=== PATIENT | female | born 1960 | race Two or more races ===

== ENCOUNTER 2024-06-15 09:53 | Outpatient (RCR) | payer OTHER, MEDICAID, SELFPAY ==
[2024-06-06 16:35] LABS: Basophils % (Auto) 0 % (0-2.5); Eosinophils # (Auto) 0.2 Thou/mm3 (0.0-0.5); Eosinophils % (Auto) 3 % (0-10); Hemoglobin 10.6 g/dL (12.0-16.0); Immature Granulocytes % (Auto) 0 % (0-0); Immature Granulocytes Auto 0.02 Thou/mm3 (0.00-0.00); Lymphocytes # (Auto) 1.8 Thou/mm3 (1.0-4.8); Lymphocytes % (Auto) 34 % (10-50); Mean Corpuscular HGB Conc 33.1 g/dl (31.0-37.0); Mean Corpuscular Hemoglobin 31.2 pg (25.0-35.0); Mean Corpuscular Volume 94 fL (80-100); Monocytes # (Auto) 0.5 Thou/mm3 (0.0-0.8); Monocytes % (Auto) 10 % (0-12); Neutrophils # (Auto) 2.8 Thou/mm3 (1.8-7.7); Neutrophils % (Auto) 52 % (37-80); Nucleated Red Blood Cell % 0 /100 WBC (0); Platelet Count 263 Thou/mm3 (140-440); RDW Standard Deviation 43.8 fL (36.4-46.3); White Blood Count 5.4 Thou/mm3 (3.6-11.0)
[2024-06-06 17:14] LABS: Alanine Aminotransferase 17 U/L (10-49); Albumin, Serum 4.4 gm/dL (3.4-4.8); Albumin/Globulin Ratio 1.7 (1.2-2.2); Alkaline Phosphatase 46 U/L (46-116); Anion Gap 6 (7-16); Aspartate Amino Transferase 22 U/L (0-34); BUN/Creatinine Ratio 20 Ratio (12-20); Bilirubin,Total 0.4 mg/dL (0.3-1.2); Blood Urea Nitrogen 16 mg/dL (9-23); Carbon Dioxide 25.1 mMol/L (20.0-31.0); Chloride 106 mMol/L (98-107); Creatinine (Component) 0.8 mg/dL (0.6-1.3); Globulin 2.6 gm/dL (2.3-3.5); Glucose 127 mg/dL (74-106); Osmolality,Calculated 277 (275-295); Potassium 3.9 mMol/L (3.4-5.1); Sodium 137 mMol/L (136-145); eGFR > 60 See Note
== END 2024-06-24 23:59 | disposition home or self-care (01) ==
LOC: SCTC 09:53
PROVIDERS: Internal Medicine Hematology & Oncology; PCP Nurse Practitioner Family; Referring Provider Nurse Practitioner Family; Visit Provider Radiology Therapeutic Radiology
DX: Z51.0 Encounter for antineoplastic radiation therapy (principal); Z51.11 Encounter for antineoplastic chemotherapy; C50.812 Malignant neoplasm of overlapping sites of left female breast; Z17.421 Hormone receptor negative with human epidermal growth factor receptor 2 negative status; L59.9 Disorder of the skin and subcutaneous tissue related to radiation, unspecified; Y84.2 Radiological procedure and radiotherapy as the cause of abnormal reaction of the patient, or of later complication, without mention of misadventure at the time of the procedure
CPT/HCPCS: 36591; 77336; 77412; 80053; 85025; 96413; 99213; A4216; J1642; J7050; Q5117; G0463

== ENCOUNTER 2024-06-27 07:36 | Outpatient (CLI) | payer OTHER, MEDICAID, SELFPAY ==
[2024-06-20 14:54] VITALS: BMI 28.7
[2024-06-26 08:02] LABS: Basophils % (Auto) 0 % (0-2.5); Eosinophils # (Auto) 0.2 Thou/mm3 (0.0-0.5); Eosinophils % (Auto) 3 % (0-10); Hematocrit 37.3 % (36.0-46.0); Hemoglobin 12.5 g/dL (12.0-16.0); Immature Granulocytes % (Auto) 0 % (0-0); Immature Granulocytes Auto 0.01 Thou/mm3 (0.00-0.00); Lymphocytes # (Auto) 1.9 Thou/mm3 (1.0-4.8); Lymphocytes % (Auto) 35 % (10-50); Mean Corpuscular HGB Conc 33.5 g/dl (31.0-37.0); Mean Corpuscular Hemoglobin 31.4 pg (25.0-35.0); Mean Corpuscular Volume 94 fL (80-100); Monocytes # (Auto) 0.5 Thou/mm3 (0.0-0.8); Monocytes % (Auto) 9 % (0-12); Neutrophils # (Auto) 2.9 Thou/mm3 (1.8-7.7); Neutrophils % (Auto) 54 % (37-80); Nucleated Red Blood Cell % 0 /100 WBC (0); Platelet Count 257 Thou/mm3 (140-440); RDW Standard Deviation 41.6 fL (36.4-46.3); Red Blood Count 3.98 Miln/mm3 (4.00-5.20); White Blood Count 5.5 Thou/mm3 (3.6-11.0)
[2024-06-26 08:15] VITALS: BP 137/81; PULSE 75; RESP 16; TEMP 37.1; O2SAT 99
[2024-06-26 08:17] LABS: Blood Urea Nitrogen 20 mg/dL (9-23); Estimated Creatinine Clearance 51.8 mL/min (>60); eGFR > 60 See Note
[2024-06-26 08:42] LABS: Partial Thromboplastin Time 26.2 Seconds (22.0-36.0); Prothrombin Time 10.9 Seconds (9.0-12.2)
[2024-06-26 10:05] LABS: Flow Cytometry* See Sep Rpt
--- NOTE | 2024-06-26 10:28 | PC.NURSE ---
procedure was unable to be completed due to incorrect order and ran out of time. 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 there will not be enough time for the procedure. patient will be rescheduled for tomorrow 06/27/24 at 0730
[2024-06-27] VITALS (9 sets, daily range): BP systolic 115–161; BP diastolic 62–96; PULSE 63–82; RESP 12–19; TEMP 36.4–36.6; O2SAT 95–99
--- NOTE | 2024-06-27 08:30 | XR_ITS ---
Examination: CT-guided percutaneous bone marrow aspiration right posterior superior iliac crest CT-guided percutaneous bone density deep right posterior superior iliac crest CT pelvis without intravenous contrast Date and time of procedure: June 27, 2024 0935 hours INDICATIONS: Diagnosis malignant neoplasm breast, anemia Informed consent provided. A timeout was completed verifying correct patient, procedure, site and positioning. Technique: Axial 3 mm sections were obtained for localization of the right posterior superior iliac crest Appropriate area is marked. The patient's site was prepped and draped in sterile fashion Maximal sterile barrier technique utilized, including hand hygiene Local anesthesia was obtained with 1% lidocaine. Low dose protocols were performed. One or more of the following dose reduction techniques were used; automated exposure control, adjustment of the mA and/or KV according to patient size, use of iterative reconstruction technique. Utilizing CT fluoroscopic guidance 14-gauge bone biopsy needle placed in the right posterior superior iliac crest 5 cc marrow aspirate obtained deemed adequate by the technologist 4 cm bone core obtained Estimated blood loss 2 cc Complete pathology report to follow. Impression: Successful CT-guided percutaneous bone marrow aspiration right posterior superior iliac crest Successful CT-guided percutaneous bone biopsy deep right posterior superior iliac crest
[2024-06-27] MEDS: SODIUM CHLORIDE 0.9% 100 ML 20 ML IV (09:47)
[2024-06-27] MEDS: fentaNYL CIT INJ 50 mCg/ML AMP 2ML 75 MCG IVP (09:48)
--- NOTE | 2024-06-27 14:17 | PC.NURSE ---
1015 patient is awake, alert, breathing unlabored, s/p bone marrow biopsy and aspiration, dressing dry with no bleeding, report received from Chuck DALY, patient to recovery for 1hr. 1135 patient is awake, alert, breathing unlabored, dressing dry with no active bleeding, discharge instructions given to patient and family member Kennedy, patient discharged home in wheelchair with all belongings.
== END 2024-06-27 11:35 | disposition home or self-care (01) ==
PROVIDERS: Radiology Diagnostic Radiology; PCP Internal Medicine Hematology & Oncology; Referring Provider Internal Medicine Hematology & Oncology; Visit Provider Internal Medicine Hematology & Oncology
DX: C50.912 Malignant neoplasm of unspecified site of left female breast (principal); C50.112 Malignant neoplasm of central portion of left female breast; Z01.812 Encounter for preprocedural laboratory examination
CPT/HCPCS: 38221; 36415; 77012; 80053; 82565; 84520; 85025; 85610; 85730; J3010; J7050

== ENCOUNTER → 2024-07-04 | Outpatient (CLI) | payer OTHER, MEDICAID, SELFPAY ==
--- NOTE | 2024-07-04 14:30 | ECHO_ITS ---
Transthoracic Echo Report Ht (in): 62 Wt (lb): 160 Exam Location: Echo Lab Status: Preadmit Heel Room Supervisor: Nery Bender Indications: Procedure Performed: BP: / HR: Rhythm: Sinus Technical Quality: Fair MEASUREMENTS (Male / Female) Normal Values 2D ECHO LV Diastolic Diameter PLAX 4.0 cm 4.2 - 5.9 / 3.9 - 5.3 cm LV Systolic Diameter PLAX 2.6 cm IVS Diastolic Thickness 1.0 cm 0.6 - 1.0 / 0.6 - 0.9 cm LVPW Diastolic Thickness 0.9 cm 0.6 - 1.0 / 0.6 - 0.9 cm LV Relative Wall Thickness 0.5 LVOT Diameter 1.9 cm LA Volume Index 19.3 cm?/m? 16 - 28 cm?/m? Ascending Aorta Diameter 3.3 cm M-MODE Aortic Root Diameter MM 2.9 cm LA Systolic Diameter MM 3.6 cm LA Ao Ratio MM 1.2 AV Cusp Separation MM 1.7 cm DOPPLER AV Peak Velocity 166.0 cm/s AV Peak Gradient 11.0 mmHg AV Mean Gradient 6.0 mmHg AV Velocity Time Integral 34.9 cm AI Peak Velocity 422.5 cm/s AI Peak Gradient 71.4 mmHg AI Pressure Half Time 377.0 ms LVOT Peak Velocity 91.6 cm/s LVOT Peak Gradient 3.4 mmHg LVOT Velocity Time Integral 16.5 cm AV Area Cont Eq vti 1.3 cm? AV Area Cont Eq pk 1.6 cm? MV Peak Velocity 88.9 cm/s MV Peak Gradient 3.2 mmHg MV Mean Velocity 51.0 cm/s MV Mean Gradient 1.0 mmHg MV Area PHT 4.7 cm? Mitral E Point Velocity 62.1 cm/s Mitral A Point Velocity 82.0 cm/s Mitral E to A Ratio 0.8 LV E' Lateral Velocity 6.9 cm/s Mitral E to LV E' Lateral Ratio 9.1 LV E' Septal Velocity 5.7 cm/s Mitral E to LV E' Septal Ratio 11.0 FINDINGS Left Ventricle Normal left ventricular size, wall thickness, systolic function with no obvious regional wall motion abnormalities. The ejection fraction is visually estimated at 60-65 %. Right Ventricle The right ventricle is normal in size and systolic function. Left Atrium The left atrium is normal by two-dimensional, color flow and Doppler imaging with no structural abnormalities, no thrombus formation present. Right Atrium The right atrium is normal by two-dimensional imaging, color flow and Doppler imaging with no struct ural abnormalities, no thrombus formation present. Atrial Septum The interatrial septum appears normal with no evidence of a shunt. Aorta The aorta is normal by two-dimensional, color flow and Doppler interrogation. Mitral Valve The mitral valve is normal by two-dimensional, color flow and Doppler interrogation. There is no sig nificant mitral valve regurgitation. Aortic Valve The aortic valve is trileaflet. Mild sclerosis without stenosis. There is mild aortic valve regurgi tation. Tricuspid Valve The tricuspid valve is normal by two-dimensional, color flow and Doppler interrogation. There is tra ce tricuspid valve regurgitation. Pulmonic Valve There is trace pulmonic valve regurgitation. Vessels The pulmonary artery appears normal. The inferior vena cava pulmonary and hepatic veins appear wai l. Pericardium The pericardium is normal by two-dimensional imaging. There is no significant pericardial effusion. CONCLUSIONS Indication: Malignant neoplasm of left female breast Normal LV size and function. Stage I diastolic dysfunction. Estimated EF 60-65% Normal RV size and function. Moderate AV sclerosis without stenosis. Trace TR, PI. Mild AI. Lavell Thompson (Electronically Signed) Final Date: 04 July 2024 18:11
== END | disposition home or self-care (01) ==
PROVIDERS: PCP Nurse Practitioner Family; Referring Provider Internal Medicine Hematology & Oncology; Visit Provider Internal Medicine Hematology & Oncology
DX: I08.2 Rheumatic disorders of both aortic and tricuspid valves (principal); C50.112 Malignant neoplasm of central portion of left female breast
CPT/HCPCS: 93306

== ENCOUNTER 2024-07-20 09:26 | Outpatient (RCR) | payer OTHER, MEDICAID, SELFPAY ==
[2024-06-27 15:42] LABS: Basophils % (Auto) 1 % (0-2.5); Eosinophils # (Auto) 0.1 Thou/mm3 (0.0-0.5); Eosinophils % (Auto) 2 % (0-10); Hemoglobin 11.2 g/dL (12.0-16.0); Immature Granulocytes % (Auto) 0 % (0-0); Immature Granulocytes Auto 0.01 Thou/mm3 (0.00-0.00); Lymphocytes # (Auto) 1.7 Thou/mm3 (1.0-4.8); Lymphocytes % (Auto) 38 % (10-50); Mean Corpuscular HGB Conc 32.9 g/dl (31.0-37.0); Mean Corpuscular Hemoglobin 31.2 pg (25.0-35.0); Mean Corpuscular Volume 95 fL (80-100); Monocytes # (Auto) 0.3 Thou/mm3 (0.0-0.8); Monocytes % (Auto) 8 % (0-12); Neutrophils # (Auto) 2.2 Thou/mm3 (1.8-7.7); Neutrophils % (Auto) 51 % (37-80); Nucleated Red Blood Cell % 0 /100 WBC (0); Platelet Count 267 Thou/mm3 (140-440); RDW Standard Deviation 41.5 fL (36.4-46.3); Red Blood Count 3.59 Miln/mm3 (4.00-5.20); White Blood Count 4.4 Thou/mm3 (3.6-11.0)
[2024-06-27 16:01] LABS: Alanine Aminotransferase 18 U/L (10-49); Albumin, Serum 4.6 gm/dL (3.4-4.8); Albumin/Globulin Ratio 1.8 (1.2-2.2); Alkaline Phosphatase 48 U/L (46-116); Anion Gap 9 (7-16); Aspartate Amino Transferase 12 U/L (0-34); BUN/Creatinine Ratio 21 Ratio (12-20); Bilirubin,Total 0.6 mg/dL (0.3-1.2); Blood Urea Nitrogen 19 mg/dL (9-23); Calcium 9.5 mg/dL (8.3-10.6); Calcium (Corrected) 9.5 mg/dL (8.5-10.1); Chloride 104 mMol/L (98-107); Creatinine (Component) 0.9 mg/dL (0.6-1.3); Globulin 2.6 gm/dL (2.3-3.5); Glucose 237 mg/dL (74-106); Osmolality,Calculated 285 (275-295); Potassium 3.9 mMol/L (3.4-5.1); Sodium 138 mMol/L (136-145); Total Protein 7.2 gm/dL (5.7-8.2); eGFR > 60 See Note
[2024-07-18 09:22] LABS: Basophils % (Auto) 0 % (0-2.5); Eosinophils # (Auto) 0.2 Thou/mm3 (0.0-0.5); Eosinophils % (Auto) 3 % (0-10); Hematocrit 33.7 % (36.0-46.0); Hemoglobin 11.3 g/dL (12.0-16.0); Immature Granulocytes % (Auto) 0 % (0-0); Immature Granulocytes Auto 0.01 Thou/mm3 (0.00-0.00); Lymphocytes # (Auto) 1.8 Thou/mm3 (1.0-4.8); Lymphocytes % (Auto) 36 % (10-50); Mean Corpuscular HGB Conc 33.5 g/dl (31.0-37.0); Mean Corpuscular Hemoglobin 30.9 pg (25.0-35.0); Mean Corpuscular Volume 92 fL (80-100); Monocytes # (Auto) 0.5 Thou/mm3 (0.0-0.8); Monocytes % (Auto) 10 % (0-12); Neutrophils # (Auto) 2.5 Thou/mm3 (1.8-7.7); Neutrophils % (Auto) 50 % (37-80); Nucleated Red Blood Cell % 0 /100 WBC (0); Platelet Count 256 Thou/mm3 (140-440); RDW Standard Deviation 39.9 fL (36.4-46.3); Red Blood Count 3.66 Miln/mm3 (4.00-5.20); White Blood Count 4.9 Thou/mm3 (3.6-11.0)
[2024-07-18 09:36] LABS: Alanine Aminotransferase 17 U/L (10-49); Albumin, Serum 4.7 gm/dL (3.4-4.8); Albumin/Globulin Ratio 1.9 (1.2-2.2); Alkaline Phosphatase 48 U/L (46-116); Anion Gap 9 (7-16); Aspartate Amino Transferase 15 U/L (0-34); BUN/Creatinine Ratio 30 Ratio (12-20); Bilirubin,Total 0.5 mg/dL (0.3-1.2); Blood Urea Nitrogen 24 mg/dL (9-23); Calcium 9.8 mg/dL (8.3-10.6); Calcium (Corrected) 9.8 mg/dL (8.5-10.1); Chloride 105 mMol/L (98-107); Creatinine (Component) 0.8 mg/dL (0.6-1.3); Globulin 2.5 gm/dL (2.3-3.5); Glucose 138 mg/dL (74-106); Osmolality,Calculated 283 (275-295); Potassium 4.1 mMol/L (3.4-5.1); Sodium 139 mMol/L (136-145); Total Protein 7.2 gm/dL (5.7-8.2); eGFR > 60 See Note
--- NOTE | 2024-07-23 14:46 | CTCFLWUP_ITS ---
Patient: OUMOU SOLANO : 1960 Page 6 of 8 FOLLOW UP NOTE DATE OF SERVICE: 07/17/2024 NAME: OUMOU SOLANO ACCOUNT: [id number] : 1960 AGE: 63 INTERVAL HISTORY: ONCOLOGY HISTORY: DIAGNOSIS: Malignant neoplasm of central portion of left female breast [ICD10] C50.112 DATE OF DIAGNOSIS: 06/28/2023 STAGE/TNM: T2 N0 M0 HER2 positive ER/WI negative TREATMENT HISTORY: Care?Plan Start?Date Cycle Day Intent TCH?1 12/12/2023 1 21 Curative?(adjuvant) Zoledronic?Acid?4?mg?adjuvant 01/04/2024 1 180 Curative?(adjuvant) HISTORY OF PRESENT ILLNESS: Oumou Solano is a 63-year-old SPA speaking female with following oncology history. 05/30/2021: Ms. Solano had bilateral screening mammograms 01/18/2023: Ms. Solano started feeling a lump in the left breast. She had bilateral digital chadd mograms 01/25/2023: Left breast ultrasound 06/28/2023: Ultrasound-guided left breast biopsy? 08/05/2023: Echocardiogram showed an ejection fraction of 55-60%. 08/12/2023: PET/CT scan 08/18/2023: MRI of the both breast with and without contrast 09/02/2023: CT scan of the abdomen and pelvis with IV contrast was done to evaluate the cause for abdom inal pain 09/16/2023: Left breast lumpectomy with sentinel lymph node biopsy? 10/29/2023: Endometrial biopsy negative for malignancy. 11/03/2023: Echo cardiogram showed an ejection fraction of 60-65%. 12/21/2023: Patient received first cycle of TCH chemotherapy in the adjuvant setting. OTHER MEDICAL HISTORY/CONDITIONS: DIABETES HYPERTENSION LEFT BREAST CANCER CHOLELITHIASIS CHEMO PORT PLACED AUGUST 2023 DR GRANT TUBAL LIGATION LEFT KNEE REPLACEMENT BLADDER SLING PROLAPSE 2ND SURGERY FAMILY HISTORY: Father:?DENIES Mother:?DENIES Sibling:?DENIES Children:?DENIES Cancer?History:?DENIES Patient?denies?family?cancer?history. 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 Aspirin Child - 81 mg Daily 2. atorvastatin - 10 mg Daily 3. Basaglar KwikPen - Twice a Day 4. famotidine - 20 mg Daily 5. gabapentin - 100 mg 1 Capsule Twice a Day 6. lisinopril - 40 mg Daily 7. metFORMIN - 500 mg 1 tab Twice a Day Medications Last Reconciled by Jana Whitaker MA on 07/17/2024 ALLERGIES: No Known Drug Allergies REVIEW OF SYSTEMS: A complete 14-point review of systems was performed and is negative except as noted in interval histo ry. PHYSICAL EXAMINATION: VITAL SIGNS: Temperature?99.5, B/P?147/94, Oxygen?Saturation?98% PAIN: 0 - No pain ECOG Performance Status: 0 - Asymptomatic and fully active GENERAL APPEARANCE: Appears well, in no apparent distress, appropriately interactive. HEENT: Normocephalic, no temporal wasting, normal conjunctiva, no scleral icterus, normal hearing, li ps without lesions, neck normal range of motion. CARDIOVASCULAR: Not assessed. PULMONARY: Normal respiratory effort, no respiratory distress or use of accessory muscles, speaking i n full sentences, no tachypnea. EXTREMITIES: No pedal edema or cyanosis. SKIN: Normal skin appearance. NEUROLOGIC: Alert and oriented x4. PSHYCHIATRIC: Appropriate affect, mood normal, behavior normal, intact thought and speech. LABORATORY DATA: I have personally reviewed and interpreted each of the patient?s relevant lab tests, abnormal finding s are below: Date 07/18/24 ??GLUCOSE,RANDOM?(mg/dL) 138?H ??BLOOD?UREA?NITROGEN?(mg/dL) 24?H ??CREATININE?(mg/dL) 0.80 ??SODIUM?(mmol/L) 139 ??POTASSIUM?(mmol/L) 4.1 ??CHLORIDE?(mmol/L) 105 ??CrCl?(CandG)?(ml/min) 65.39 ??AST/SGOT?(Unit/L) 15 ??ALT/SGPT?(Unit/L) 17 ??ALKALINE?PHOSPHATASE?(Unit/L) 48 ??BILIRUBIN,?TOTAL?(mg/dL) 0.5 ??PROTEIN?TOTAL?(gm/dl) 7.2 ??ALBUMIN,?SERUM?(gm/dl) 4.7 ??GLOBULIN?(gm/dl) 2.5 ??ALBUMIN/GLOBULIN?RATIO 1.9 ??CALCIUM,?SERUM?(mg/dL) 9.8 ??CALCIUM?SERUM?(CORRECTED)?(mg/dL) 9.8 ASSESSMENT/PLAN: #1 stage IIa (pT2, snN0, cM0) ER negative, WI negative, 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 S/p left breast lum pectomy and sentinel lymph node biopsy on 09/16/2023. S/p ultrasound-guided biopsy of the left breast mass (06/28/2023) S/p TCH chemotherapy in the adjuvant setting.. Follow-up with radiation oncology Continue Herceptin for 1 year #2 type 2 diabetes currently on insulin. #3 history of hypertension follow with the PCP Echo every 3 months CBC CMP echo RETURN TO CLINIC: 4 weeks BILLING AND COMPLIANCE: I reviewed external records from providers outside my specialty as summarized above. I spent a total of 50 minutes on this patient?s care on the day of their visit excluding time spent related to any bi lled procedures. This time includes time spent with the patient as well as time spent documenting in the medical record, reviewing patients records and tests, obtaining history, placing orders, communi cating with other healthcare professionals, counseling the patient, family or caregiver, and/or care coordination for the diagnoses above. Electronically Signed by: Sonido Young MD T: 2:43 PM CC: PCP: Heraclio Emmanuel Referring: Heraclio Emmanuel This document was completed utilizing speech recognition software. Grammatical errors, random word in sertions, pronoun errors, and incomplete sentences are an occasional consequence of this system due t o software limitations, ambient noise, and hardware issues. Any formal questions or concerns about th e content, text or information contained within the body of this dictation should be directly address ed to the provider for clarification.
== END 2024-07-25 23:59 | disposition home or self-care (01) ==
LOC: SCTC 09:26
PROVIDERS: PCP Family Medicine; Referring Provider Family Medicine; Visit Provider Internal Medicine Hematology & Oncology
DX: Z51.11 Encounter for antineoplastic chemotherapy (principal); C50.812 Malignant neoplasm of overlapping sites of left female breast; Z17.1 Estrogen receptor negative status [ER-]; Z17.22 Progesterone receptor negative status; Z17.31 Human epidermal growth factor receptor 2 positive status; Z90.12 Acquired absence of left breast and nipple; I10 Essential (primary) hypertension; E11.9 Type 2 diabetes mellitus without complications; Z79.4 Long term (current) use of insulin
CPT/HCPCS: 36591; 80053; 85025; 96413; 99212; A4216; J1642; J7040; J7050; Q5117; G0463

== ENCOUNTER → 2024-08-04 | Outpatient (CLI) | payer OTHER, MEDICAID, SELFPAY ==
--- NOTE | 2024-08-04 15:07 | XR_ITS ---
Examination: Breast ultrasound, unilateral, left complete Date and time of exam: August 04, 2024 1515 hours INDICATIONS: Recurrent sharp left breast pain beginning 2 months ago, diagnosis intraductal breast cancer 3:00 position left breast June 2023 Technique: Real-time sow scale ultrasonographic imaging performed left breast including all 4 quadrants as well as nipple retroareolar and axillary region. Findings: Architectural distortion 3:00 position left breast 2.7 x 1.0 x 2.7 cm indistinct margins Retroareolar area of architectural distortion 4.5 x 1.3 x 4.5 cm, indistinct margins IMPRESSION: BI-RADS Category 0: Incomplete: Need additional imaging evaluation Recommend diagnostic mammography follow-up Recommend repeat left breast sonography with the radiologist in attendance
== END | disposition home or self-care (01) ==
PROVIDERS: PCP Nurse Practitioner Family; Referring Provider Nurse Practitioner Family; Visit Provider Nurse Practitioner Family
DX: R92.8 Other abnormal and inconclusive findings on diagnostic imaging of breast (principal)
CPT/HCPCS: 76641

== ENCOUNTER 2024-08-10 09:00 | Outpatient (RCR) | payer OTHER, MEDICAID, SELFPAY ==
[2024-08-09 16:18] LABS: Basophils % (Auto) 0 % (0-2.5); Eosinophils # (Auto) 0.3 Thou/mm3 (0.0-0.5); Eosinophils % (Auto) 4 % (0-10); Hematocrit 34.5 % (36.0-46.0); Hemoglobin 11.8 g/dL (12.0-16.0); Immature Granulocytes % (Auto) 0 % (0-0); Immature Granulocytes Auto 0.03 Thou/mm3 (0.00-0.00); Lymphocytes % (Auto) 29 % (10-50); Mean Corpuscular HGB Conc 34.2 g/dl (31.0-37.0); Mean Corpuscular Hemoglobin 31.1 pg (25.0-35.0); Mean Corpuscular Volume 91 fL (80-100); Monocytes # (Auto) 0.5 Thou/mm3 (0.0-0.8); Monocytes % (Auto) 8 % (0-12); Neutrophils % (Auto) 59 % (37-80); Nucleated Red Blood Cell % 0 /100 WBC (0); Platelet Count 295 Thou/mm3 (140-440); RDW Standard Deviation 40.1 fL (36.4-46.3); Red Blood Count 3.79 Miln/mm3 (4.00-5.20); White Blood Count 6.8 Thou/mm3 (3.6-11.0)
[2024-08-09 16:43] LABS: Alanine Aminotransferase 16 U/L (10-49); Albumin, Serum 4.8 gm/dL (3.4-4.8); Albumin/Globulin Ratio 1.8 (1.2-2.2); Alkaline Phosphatase 53 U/L (46-116); Anion Gap 12 (7-16); Aspartate Amino Transferase 17 U/L (0-34); BUN/Creatinine Ratio 21 Ratio (12-20); Bilirubin,Total 0.4 mg/dL (0.3-1.2); Blood Urea Nitrogen 23 mg/dL (9-23); Calcium 10.1 mg/dL (8.3-10.6); Calcium (Corrected) 10.1 mg/dL (8.5-10.1); Carbon Dioxide 26.3 mMol/L (20.0-31.0); Chloride 102 mMol/L (98-107); Creatinine (Component) 1.1 mg/dL (0.6-1.3); Globulin 2.6 gm/dL (2.3-3.5); Glucose 129 mg/dL (74-106); Osmolality,Calculated 285 (275-295); Potassium 3.9 mMol/L (3.4-5.1); Sodium 140 mMol/L (136-145); Total Protein 7.4 gm/dL (5.7-8.2); eGFR 56 See Note
== END 2024-08-25 23:59 | disposition home or self-care (01) ==
LOC: SCTC 09:00
PROVIDERS: PCP Nurse Practitioner Family; Referring Provider Nurse Practitioner Family; Visit Provider Internal Medicine Hematology & Oncology
DX: Z51.11 Encounter for antineoplastic chemotherapy (principal); C50.812 Malignant neoplasm of overlapping sites of left female breast; Z17.1 Estrogen receptor negative status [ER-]; Z17.22 Progesterone receptor negative status; Z17.32 Human epidermal growth factor receptor 2 negative status; Z90.12 Acquired absence of left breast and nipple; E11.9 Type 2 diabetes mellitus without complications; I10 Essential (primary) hypertension; Z79.4 Long term (current) use of insulin
CPT/HCPCS: 36591; 80053; 85025; 96413; A4216; J1642; J7040; J7050; Q5117

== ENCOUNTER → 2024-08-23 | Outpatient (CLI) | payer OTHER, MEDICAID, SELFPAY ==
--- NOTE | 2024-08-23 12:50 | XR_ITS ---
Examination: Diagnostic digital mammography, unilateral, left Computer aided detection 3-D breast Tomosynthesis, unilateral Date and time of exam: August 23, 2024 1319 hours Compared to mammograms dating to February 18, 2018 INDICATIONS: Patient states left breast pain post surgery 11 months ago Technique: Nonmagnified MLO, CC views of the left breast have been obtained, reconstructed from 3-D Tomosynthesis images. R2 computer aided detection program utilized for evaluation of suspicious masses and/or abnormal calcifications. 3-D Tomosynthesis images obtained. Findings: Scattered areas of fibroid rather density Extensive architectural distortion central and outer left breast with skin thickening consistent with treated left breast cancer Benign calcifications Impression: BI-RADS category 0: Incomplete: Need additional imaging evaluation Given the 3:00 and retroareolar findings of architectural distortion on the left breast sonogram August 04, 2024, recommend follow-up spot tomographic views central and upper outer quadrant left breast Awaiting the patient's left breast sonography examination scheduled today
--- NOTE | 2024-08-23 14:13 | XR_ITS ---
Examination: Breast ultrasound, unilateral, left complete Date and time of exam: August 23, 2024 1419 hours INDICATIONS: History left breast carcinoma post lumpectomy, retroareolar architectural distortion on breast sonogram August 04, 2024 Technique: Real-time sow scale ultrasonographic imaging performed left breast including all 4 quadrants as well as nipple retroareolar and axillary region. Findings: Retroareolar architectural distortion extending to the 3:00 position left breast, 7 cm This may be postsurgical scarring IMPRESSION: BI-RADS Category 3: Probably benign findings One additional 3 month follow-up left breast sonogram strongly recommended
== END | disposition home or self-care (01) ==
LOC: CDIM 12:33
PROVIDERS: PCP Nurse Practitioner Family; Referring Provider Nurse Practitioner Family; Visit Provider Nurse Practitioner Family
DX: R92.8 Other abnormal and inconclusive findings on diagnostic imaging of breast (principal)
CPT/HCPCS: 76641; 77061; 77065; G0279

== ENCOUNTER → 2024-08-30 | Outpatient (CLI) | payer OTHER, MEDICAID, SELFPAY ==
--- NOTE | 2024-08-30 09:15 | XR_ITS ---
Examination: Abdomen sonogram, complete Date and time of exam: August 30, 2024 0940 hours INDICATIONS: Abdominal pain beginning 6 months ago. Technique: Multiple real-time grayscale transabdominal sonographic images of the abdomen have been obtained. Findings: 13 mm gallstone in the gallbladder neck Gallbladder wall 0.3 cm Common bile duct 0.6 cm Pancreatic head 2.7 cm Aorta not enlarged Liver 15 cm right lobe 26 mm liver cyst fatty infiltration Normal hepatopedal portal venous oh Patent IVC Right kidney 9.0 x 4.9 x 6.7 cm cortex 1.9 cm Left kidney 11.2 x 6.3 x 5.3 cm cortex 1.8 cm Mild left hydronephrosis Spleen 8.8 cm IMPRESSION: Cholelithiasis, negative for cholecystitis Fatty liver Mild left hydronephrosis
== END | disposition home or self-care (01) ==
PROVIDERS: PCP Nurse Practitioner Family; Referring Provider Internal Medicine Gastroenterology; Visit Provider Internal Medicine Gastroenterology
DX: K80.20 Calculus of gallbladder without cholecystitis without obstruction (principal); K76.0 Fatty (change of) liver, not elsewhere classified; N13.30 Unspecified hydronephrosis
CPT/HCPCS: 76700

== ENCOUNTER 2024-09-21 09:05 | Outpatient (RCR) | payer OTHER, MEDICAID, SELFPAY ==
[2024-08-30 12:17] LABS: Basophils % (Auto) 0 % (0-2.5); Eosinophils # (Auto) 0.2 Thou/mm3 (0.0-0.5); Eosinophils % (Auto) 3 % (0-10); Hematocrit 34.1 % (36.0-46.0); Hemoglobin 11.5 g/dL (12.0-16.0); Immature Granulocytes % (Auto) 0 % (0-0); Immature Granulocytes Auto 0.02 Thou/mm3 (0.00-0.00); Lymphocytes # (Auto) 1.9 Thou/mm3 (1.0-4.8); Lymphocytes % (Auto) 35 % (10-50); Mean Corpuscular HGB Conc 33.7 g/dl (31.0-37.0); Mean Corpuscular Hemoglobin 30.3 pg (25.0-35.0); Mean Corpuscular Volume 90 fL (80-100); Monocytes # (Auto) 0.4 Thou/mm3 (0.0-0.8); Monocytes % (Auto) 8 % (0-12); Neutrophils # (Auto) 2.8 Thou/mm3 (1.8-7.7); Neutrophils % (Auto) 53 % (37-80); Nucleated Red Blood Cell % 0 /100 WBC (0); Platelet Count 254 Thou/mm3 (140-440); RDW Standard Deviation 40.6 fL (36.4-46.3); Red Blood Count 3.79 Miln/mm3 (4.00-5.20); White Blood Count 5.3 Thou/mm3 (3.6-11.0)
[2024-08-30 12:50] LABS: Alanine Aminotransferase 22 U/L (10-49); Albumin, Serum 4.6 gm/dL (3.4-4.8); Albumin/Globulin Ratio 1.7 (1.2-2.2); Alkaline Phosphatase 51 U/L (46-116); Anion Gap 9 (7-16); Aspartate Amino Transferase 20 U/L (0-34); BUN/Creatinine Ratio 25 Ratio (12-20); Bilirubin,Total 0.7 mg/dL (0.3-1.2); Blood Urea Nitrogen 20 mg/dL (9-23); Calcium 9.7 mg/dL (8.3-10.6); Calcium (Corrected) 9.7 mg/dL (8.5-10.1); Carbon Dioxide 22.4 mMol/L (20.0-31.0); Chloride 109 mMol/L (98-107); Creatinine (Component) 0.8 mg/dL (0.6-1.3); Globulin 2.7 gm/dL (2.3-3.5); Glucose 114 mg/dL (74-106); Osmolality,Calculated 283 (275-295); Potassium 4.5 mMol/L (3.4-5.1); Sodium 140 mMol/L (136-145); Total Protein 7.3 gm/dL (5.7-8.2); eGFR > 60 See Note
--- NOTE | 2024-09-14 06:20 | CTCFLWUP_ITS ---
Patient: OUMOU SOLANO : 1960 Page 6 of 7 FOLLOW UP NOTE DATE OF SERVICE: 09/13/2024 NAME: OUMOU SOLANO ACCOUNT: [id number] : 1960 AGE: 64 INTERVAL HISTORY: Follow-up ONCOLOGY HISTORY: DIAGNOSIS: Malignant neoplasm of central portion of left female breast [ICD10] C50.112 DATE OF DIAGNOSIS: 06/28/2023 STAGE/TNM: T2 N0 M0 HER2 positive ER/MN negative TREATMENT HISTORY: Care?Plan Start?Date Cycle Day Intent TCH?1 12/12/2023 1 21 Curative?(adjuvant) Zoledronic?Acid?4?mg?adjuvant 01/04/2024 1 180 Curative?(adjuvant) HISTORY OF PRESENT ILLNESS: Oumou Solano is a 64-year-old SPA speaking female with following oncology history. 05/30/2021: Ms. Solano had bilateral screening mammograms 01/18/2023: Ms. Solano started feeling a lump in the left breast. She had bilateral digital mammograms 01/25/2023: Left breast ultrasound 06/28/2023: Ultrasound-guided left breast biopsy? 08/05/2023: Echocardiogram showed an ejection fraction of 55-60%. 08/12/2023: PET/CT scan 08/18/2023: MRI of the both breast with and without contrast 09/02/2023: CT scan of the abdomen and pelvis with IV contrast was done to evaluate the cause for abdominal pain 09/16/2023: Left breast lumpectomy with sentinel lymph node biopsy? 10/29/2023: Endometrial biopsy negative for malignancy. 11/03/2023: Echo cardiogram showed an ejection fraction of 60-65%. 12/21/2023: Patient received first cycle of TCH chemotherapy in the adjuvant setting. OTHER MEDICAL HISTORY/CONDITIONS: DIABETES HYPERTENSION LEFT BREAST CANCER CHOLELITHIASIS CHEMO PORT PLACED AUGUST 2023 DR GRANT TUBAL LIGATION LEFT KNEE REPLACEMENT BLADDER SLING PROLAPSE 2ND SURGERY FAMILY HISTORY: Father:?DENIES Mother:?DENIES Sibling:?DENIES Children:?DENIES Cancer?History:?DENIES Patient?denies?family?cancer?history. 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 Aspirin Child - 81 mg Daily 2. atorvastatin - 10 mg Daily 3. Basaglar KwikPen - Twice a Day 4. famotidine - 20 mg Daily 5. gabapentin - 100 mg 1 Capsule Twice a Day 6. lisinopril - 40 mg Daily 7. metFORMIN - 500 mg 1 tab Twice a Day Medications Last Reconciled by Jana Whitaker MA on 09/13/2024 ALLERGIES: No Known Drug Allergies REVIEW OF SYSTEMS: A complete 14-point review of systems was performed and is negative except as noted in interval history. PHYSICAL EXAMINATION: VITAL SIGNS: PAIN: 0 - No pain ECOG Performance Status: 0 - Asymptomatic and fully active GENERAL APPEARANCE: Appears well, in no apparent distress, appropriately interactive. HEENT: Normocephalic, no temporal wasting, normal conjunctiva, no scleral icterus, normal hearing, lips without lesions, neck normal range of motion. CARDIOVASCULAR: Not assessed. PULMONARY: Normal respiratory effort, no respiratory distress or use of accessory muscles, speaking in full sentences, no tachypnea. EXTREMITIES: No pedal edema or cyanosis. SKIN: Normal skin appearance. NEUROLOGIC: Alert and oriented x4. PSHYCHIATRIC: Appropriate affect, mood normal, behavior normal, intact thought and speech. LABORATORY DATA: I have personally reviewed and interpreted each of the patient?s relevant lab tests, abnormal findings are below: Date 08/30/24 ??WHITE?BLOOD?COUNT?(Thou/mm3) 5.3 ??RED?BLOOD?COUNT?(Miln/mm3) 3.79?L ??HEMOGLOBIN?(gm/dl) 11.5?L ??HEMATOCRIT?(%) 34.1?L ??PLATELET?COUNT?(Thou/mm3) 254 ??NEUTROPHILS?%,?AUTO?(%) 53 ??LYMPH?%,?AUTO?(%) 35 ??NEUTROPHILS,?AUTO?(Thou/mm3) 2.8 ASSESSMENT/PLAN: #1 stage IIa (pT2, snN0, cM0) ER negative, MN negative, 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 S/p left breast lumpectomy and sentinel lymph node biopsy on 09/16/2023. S/p ultrasound-guided biopsy of the left breast mass (06/28/2023) S/p TCH chemotherapy in the adjuvant setting.. Follow-up with radiation oncology Continue Herceptin for 1 year Patient have multiple mammogram and ultrasound and still not very clear regarding her left breast Last ultrasound and mammogram were unclear I will order mammogram of the left breast to evaluate it better #2 type 2 diabetes currently on insulin. #3 history of hypertension follow with the PCP Echo every 3 months CBC CMP echo ASHD for CBC CMP echo RETURN TO CLINIC: I will see her back in the clinic in 2 months. BILLING AND COMPLIANCE: I reviewed external records from providers outside my specialty as summarized above. I spent a total of 50 minutes on this patient?s care on the day of their visit excluding time spent related to any billed procedures. This time includes time spent with the patient as well as time spent documenting in the medical record, reviewing patients records and tests, obtaining history, placing orders, communicating with other healthcare professionals, counseling the patient, family or caregiver, and/or care coordination for the diagnoses above. Electronically Signed by: Sonido Young MD T: 6:17 AM CC: PCP: Serina Adrian Referring: Serina Adrian This document was completed utilizing speech recognition software. Grammatical errors, random word insertions, pronoun errors, and incomplete sentences are an occasional consequence of this system due to software limitations, ambient noise, and hardware issues. Any formal questions or concerns about the content, text or information contained within the body of this dictation should be directly addressed to the provider for clarification.
[2024-09-20 12:11] LABS: Basophils % (Auto) 0 % (0-2.5); Eosinophils # (Auto) 0.2 Thou/mm3 (0.0-0.5); Eosinophils % (Auto) 3 % (0-10); Hematocrit 34.4 % (36.0-46.0); Hemoglobin 11.6 g/dL (12.0-16.0); Immature Granulocytes % (Auto) 0 % (0-0); Immature Granulocytes Auto 0.02 Thou/mm3 (0.00-0.00); Lymphocytes # (Auto) 2.1 Thou/mm3 (1.0-4.8); Lymphocytes % (Auto) 36 % (10-50); Mean Corpuscular HGB Conc 33.7 g/dl (31.0-37.0); Mean Corpuscular Hemoglobin 30.9 pg (25.0-35.0); Mean Corpuscular Volume 92 fL (80-100); Monocytes # (Auto) 0.4 Thou/mm3 (0.0-0.8); Monocytes % (Auto) 7 % (0-12); Neutrophils # (Auto) 3.1 Thou/mm3 (1.8-7.7); Neutrophils % (Auto) 53 % (37-80); Nucleated Red Blood Cell % 0 /100 WBC (0); Platelet Count 273 Thou/mm3 (140-440); Red Blood Count 3.76 Miln/mm3 (4.00-5.20); White Blood Count 5.8 Thou/mm3 (3.6-11.0)
[2024-09-20 12:55] LABS: Alanine Aminotransferase 18 U/L (10-49); Albumin, Serum 4.6 gm/dL (3.4-4.8); Albumin/Globulin Ratio 1.7 (1.2-2.2); Alkaline Phosphatase 52 U/L (46-116); Anion Gap 6 (7-16); Aspartate Amino Transferase 19 U/L (0-34); BUN/Creatinine Ratio 26 Ratio (12-20); Bilirubin,Total 0.4 mg/dL (0.3-1.2); Blood Urea Nitrogen 26 mg/dL (9-23); Calcium 10.1 mg/dL (8.3-10.6); Calcium (Corrected) 10.1 mg/dL (8.5-10.1); Carbon Dioxide 27.9 mMol/L (20.0-31.0); Chloride 103 mMol/L (98-107); Globulin 2.7 gm/dL (2.3-3.5); Glucose 191 mg/dL (74-106); Osmolality,Calculated 283 (275-295); Potassium 4.1 mMol/L (3.4-5.1); Sodium 137 mMol/L (136-145); Thyroid Stimulating Hormone 2.38 uIU/mL (0.55-4.78); Total Protein 7.3 gm/dL (5.7-8.2); eGFR > 60 See Note
[2024-09-20 13:01] LABS: Free T3 2.9 pg/mL (2.3-4.2)
== END 2024-09-22 23:59 | disposition home or self-care (01) ==
LOC: SCTC 09:05
PROVIDERS: PCP Nurse Practitioner Family; Referring Provider Nurse Practitioner Family; Visit Provider Internal Medicine Hematology & Oncology
DX: Z51.11 Encounter for antineoplastic chemotherapy (principal); C50.812 Malignant neoplasm of overlapping sites of left female breast; Z17.1 Estrogen receptor negative status [ER-]; Z17.21 Progesterone receptor positive status; Z17.32 Human epidermal growth factor receptor 2 negative status; Z90.12 Acquired absence of left breast and nipple; E11.9 Type 2 diabetes mellitus without complications; Z79.4 Long term (current) use of insulin; I10 Essential (primary) hypertension
CPT/HCPCS: 36591; 80053; 84443; 84481; 85025; 96413; 99213; A4216; J1642; J7040; J7050; Q5117; G0463

== ENCOUNTER → 2024-10-05 | Outpatient (CLI) | payer OTHER, MEDICAID, SELFPAY ==
--- NOTE | 2024-10-05 14:00 | XR_ITS ---
Examination: Bone densitometry Date and time of exam:1946 hrs. Indications: Menopause age 50, diabetic Technique: Lumbar spine and hip total bone mineralization values of an calculated. Peak reference and age match control results have been displayed. Findings: Lumbar spine total bone mineralization is1.100 gm/cm2. This is 0.5 standard deviations above peak reference. This is 2.3 standard deviations above age-matched controls. Hip total bone mineralization is 1.061 gm/cm2 This is 0.7 standard deviations above peak reference. This is 1.9 standard deviations above age-matched controls Impression: There is normal mineralization based on lumbar spine measurements. There is normal mineralization based on hip measurements
== END | disposition home or self-care (01) ==
PROVIDERS: PCP Nurse Practitioner Family; Referring Provider Nurse Practitioner Family; Visit Provider Nurse Practitioner Family
DX: Z13.820 Encounter for screening for osteoporosis (principal)
CPT/HCPCS: 77080

== ENCOUNTER 2024-10-12 08:49 | Outpatient (RCR) | payer OTHER, MEDICAID, SELFPAY ==
[2024-10-11 14:39] LABS: Basophils % (Auto) 1 % (0-2.5); Eosinophils # (Auto) 0.2 Thou/mm3 (0.0-0.5); Eosinophils % (Auto) 3 % (0-10); Hematocrit 34.6 % (36.0-46.0); Immature Granulocytes % (Auto) 0 % (0-0); Immature Granulocytes Auto 0.01 Thou/mm3 (0.00-0.00); Lymphocytes # (Auto) 2.3 Thou/mm3 (1.0-4.8); Lymphocytes % (Auto) 34 % (10-50); Mean Corpuscular HGB Conc 34.7 g/dl (31.0-37.0); Mean Corpuscular Hemoglobin 31.4 pg (25.0-35.0); Mean Corpuscular Volume 91 fL (80-100); Monocytes # (Auto) 0.5 Thou/mm3 (0.0-0.8); Monocytes % (Auto) 8 % (0-12); Neutrophils # (Auto) 3.8 Thou/mm3 (1.8-7.7); Neutrophils % (Auto) 55 % (37-80); Nucleated Red Blood Cell % 0 /100 WBC (0); Platelet Count 281 Thou/mm3 (140-440); RDW Standard Deviation 41.7 fL (36.4-46.3); Red Blood Count 3.82 Miln/mm3 (4.00-5.20); White Blood Count 6.9 Thou/mm3 (3.6-11.0)
[2024-10-11 15:55] LABS: Alanine Aminotransferase 25 U/L (10-49); Albumin, Serum 4.7 gm/dL (3.4-4.8); Albumin/Globulin Ratio 1.8 (1.2-2.2); Alkaline Phosphatase 52 U/L (46-116); Anion Gap 12 (7-16); Aspartate Amino Transferase 21 U/L (0-34); BUN/Creatinine Ratio 23 Ratio (12-20); Bilirubin,Total 0.5 mg/dL (0.3-1.2); Blood Urea Nitrogen 21 mg/dL (9-23); Calcium 10.2 mg/dL (8.3-10.6); Calcium (Corrected) 10.2 mg/dL (8.5-10.1); Carbon Dioxide 23.7 mMol/L (20.0-31.0); Chloride 102 mMol/L (98-107); Creatinine (Component) 0.9 mg/dL (0.6-1.3); Globulin 2.6 gm/dL (2.3-3.5); Glucose 111 mg/dL (74-106); Osmolality,Calculated 279 (275-295); Potassium 4.1 mMol/L (3.4-5.1); Sodium 138 mMol/L (136-145); Thyroid Stimulating Hormone 1.67 uIU/mL (0.55-4.78); Total Protein 7.3 gm/dL (5.7-8.2); eGFR > 60 See Note
== END 2024-10-23 23:59 | disposition home or self-care (01) ==
LOC: SCTC 08:49
PROVIDERS: PCP Family Medicine; Referring Provider Family Medicine; Visit Provider Internal Medicine Hematology & Oncology
DX: Z51.11 Encounter for antineoplastic chemotherapy (principal); C50.912 Malignant neoplasm of unspecified site of left female breast; C50.812 Malignant neoplasm of overlapping sites of left female breast; Z17.1 Estrogen receptor negative status [ER-]; Z17.22 Progesterone receptor negative status; Z17.32 Human epidermal growth factor receptor 2 negative status; Z90.12 Acquired absence of left breast and nipple; E11.9 Type 2 diabetes mellitus without complications; Z79.4 Long term (current) use of insulin; I10 Essential (primary) hypertension
CPT/HCPCS: 36591; 80053; 84443; 85025; 96413; A4216; J1642; J7040; J7050; Q5117

== ENCOUNTER → 2024-10-17 | Outpatient (CLI) | payer OTHER, MEDICAID, SELFPAY ==
--- NOTE | 2024-10-17 14:00 | ECHO_ITS ---
Transthoracic Echo Report Ht (in): 61 Wt (lb): 168 Exam Location: Echo Lab Status: Preadmit Apron Operator: RUTH Duarte^^^^ Indications: Procedure Performed: BP: 122 / 75 HR: 92 Rhythm: Sinus Technical Quality: Fair MEASUREMENTS (Male / Female) Normal Values 2D ECHO LV Diastolic Diameter PLAX 3.9 cm 4.2 - 5.9 / 3.9 - 5.3 cm LV Systolic Diameter PLAX 2.5 cm IVS Diastolic Thickness 1.2 cm 0.6 - 1.0 / 0.6 - 0.9 cm LVPW Diastolic Thickness 1.2 cm 0.6 - 1.0 / 0.6 - 0.9 cm LV Relative Wall Thickness 0.6 LVOT Diameter 1.9 cm Aortic Root Diameter 3.2 cm LA Systolic Diameter LX 3.7 cm 3.0 - 4.0 / 2.7 - 3.8 cm Ascending Aorta Diameter 3.0 cm DOPPLER AV Peak Velocity 173.7 cm/s AV Peak Gradient 12.1 mmHg AV Mean Gradient 7.0 mmHg AV Velocity Time Integral 29.8 cm AI Peak Velocity 241.0 cm/s AI Peak Gradient 23.2 mmHg AI Pressure Half Time 2420.0 ms LVOT Peak Velocity 110.0 cm/s LVOT Peak Gradient 4.8 mmHg LVOT Velocity Time Integral 30.7 cm LVOT Cardiac Index 4347.5 cm?/min?m? AV Area Cont Eq vti 2.9 cm? AV Area Cont Eq pk 1.8 cm? MV Area PHT 4.9 cm? Mitral E Point Velocity 70.1 cm/s Mitral A Point Velocity 78.7 cm/s Mitral E to A Ratio 0.9 LV E' Lateral Velocity 9.3 cm/s Mitral E to LV E' Lateral Ratio 7.6 LV E' Septal Velocity 8.4 cm/s Mitral E to LV E' Septal Ratio 8.4 RVOT Peak Velocity 58.4 cm/s FINDINGS Left Ventricle Normal left ventricular size, wall thickness, systolic function with no obvious regional wall motion abnormalities.there is grade I diastolic dysfunction of the left ventricle (impaired relaxation pattern). The left ventricular ejection fraction is normal, estimated at 60-65%. Right Ventricle The right ventricle is normal in size and systolic function. The estimated right ventricular systolic pressure, 20 mmHg. Left Atrium The left atrium is normal by two-dimensional, color flow and Doppler imaging with no structural abnormalities, no thrombus formation present. Right Atrium The right atrium is normal by two-dimensional imaging, color flow and Doppler imaging with no structural abnormalities, no thrombus formation present. Atrial Septum The interatrial septum appears normal with no evidence of a shunt. Aorta The aorta is normal by two-dimensional, color flow and Doppler interrogation. Mitral Valve Mild mitral annular calcification. Trace to mild mitral regurgitation. Aortic Valve Aortic valve sclerosis. Trace to mild aortic valve regurgitation. Tricuspid Valve There is mild tricuspid valve regurgitation. Pulmonic Valve The pulmonic valve is not well visualized. There is no significant pulmonic valve regurgitation. Vessels The pulmonary artery appears normal. The inferior vena cava pulmonary and hepatic veins appear normal. Pericardium The pericardium is normal by two-dimensional imaging. There is no significant pericardial effusion. CONCLUSIONS Indication: Malignant neoplasm Normal LV size and function with an estimated EF of 60 to 65%. Diastolic function stage I. Normal RV size and function. Normal RVSP around 25 mmHg. Mild MAC with mild MR and mild TR. Mild aortic valve stenosis without stenosis. mild TR Lavell Thompson (Electronically Signed) Final Date: 18 October 2024 14:01
== END | disposition home or self-care (01) ==
PROVIDERS: PCP Nurse Practitioner Family; Referring Provider Internal Medicine Hematology & Oncology; Visit Provider Internal Medicine Hematology & Oncology
DX: I08.1 Rheumatic disorders of both mitral and tricuspid valves (principal); I35.0 Nonrheumatic aortic (valve) stenosis; C50.912 Malignant neoplasm of unspecified site of left female breast; C50.112 Malignant neoplasm of central portion of left female breast
CPT/HCPCS: 93306

== ENCOUNTER → 2024-10-24 | Outpatient (CLI) | payer OTHER, MEDICAID, SELFPAY ==
--- NOTE | 2024-10-24 12:00 | XR_ITS ---
Examination: MRI bilateral breasts without intravenous contrast MRI bilateral breasts with intravenous contrast Exam date and time: October 24, 2024 1234 hours Comparison left breast sonography August 23, 2024, mammogram August 23, 2024 INDICATIONS: Diagnosis malignant neoplasm left female breast, post mastectomy June 2024, left breast sonogram August 04, 2024 architectural distortion 3:00 position left breast 2.7 x 1.0 x 2.7 cm indistinct margins, architectural distortion retroareolar left breast 4.5 x 1.3 x 4.5 cm TECHNIQUE AND FINDINGS: Bilateral breast MRI images pre and post 16 cc gadolinium Scattered areas of fibroglandular density Left breast 5.2 x 1.4 cm area of architectural distortion with indistinct margins central to 3:00 position left breast Skin retraction and marked skin thickening left breast Postcontrast and medic analysis curves demonstrate rapid wash-in and rapid washout involving this masslike area No pathologic lymphadenopathy No definite chest wall mass No dominant right breast lesion IMPRESSION: BI-RADS Category 4: Suspicious for malignancy Recommend ultrasound-guided biopsy of mass in the central to 3:00 position left breast described above to exclude recurrent malignancy
== END | disposition home or self-care (01) ==
PROVIDERS: PCP Nurse Practitioner Family; Referring Provider Internal Medicine Hematology & Oncology; Visit Provider Internal Medicine Hematology & Oncology
DX: N63.25 Unspecified lump in the left breast, overlapping quadrants (principal); C50.912 Malignant neoplasm of unspecified site of left female breast; C50.112 Malignant neoplasm of central portion of left female breast
CPT/HCPCS: 77049; A9579; C8908

== ENCOUNTER 2024-11-22 08:57 | Outpatient (RCR) | payer OTHER, MEDICAID, SELFPAY ==
[2024-11-01 09:20] LABS: Basophils % (Auto) 0 % (0-2.5); Eosinophils # (Auto) 0.2 Thou/mm3 (0.0-0.5); Eosinophils % (Auto) 3 % (0-10); Hematocrit 33.2 % (36.0-46.0); Hemoglobin 11.4 g/dL (12.0-16.0); Immature Granulocytes % (Auto) 0 % (0-0); Immature Granulocytes Auto 0.02 Thou/mm3 (0.00-0.00); Lymphocytes # (Auto) 1.6 Thou/mm3 (1.0-4.8); Lymphocytes % (Auto) 32 % (10-50); Mean Corpuscular HGB Conc 34.3 g/dl (31.0-37.0); Mean Corpuscular Hemoglobin 31.1 pg (25.0-35.0); Mean Corpuscular Volume 91 fL (80-100); Monocytes # (Auto) 0.4 Thou/mm3 (0.0-0.8); Monocytes % (Auto) 9 % (0-12); Neutrophils # (Auto) 2.6 Thou/mm3 (1.8-7.7); Neutrophils % (Auto) 55 % (37-80); Nucleated Red Blood Cell % 0 /100 WBC (0); Platelet Count 267 Thou/mm3 (140-440); RDW Standard Deviation 39.9 fL (36.4-46.3); Red Blood Count 3.67 Miln/mm3 (4.00-5.20); White Blood Count 4.8 Thou/mm3 (3.6-11.0)
[2024-11-01 09:50] LABS: Alanine Aminotransferase 20 U/L (10-49); Albumin, Serum 4.3 gm/dL (3.4-4.8); Albumin/Globulin Ratio 1.7 (1.2-2.2); Alkaline Phosphatase 41 U/L (46-116); Anion Gap 10 (7-16); Aspartate Amino Transferase 23 U/L (0-34); BUN/Creatinine Ratio 21 Ratio (12-20); Bilirubin,Total 0.5 mg/dL (0.3-1.2); Blood Urea Nitrogen 23 mg/dL (9-23); Calcium 9.9 mg/dL (8.3-10.6); Calcium (Corrected) 9.9 mg/dL (8.5-10.1); Carbon Dioxide 23.3 mMol/L (20.0-31.0); Chloride 105 mMol/L (98-107); Creatinine (Component) 1.1 mg/dL (0.6-1.3); Globulin 2.6 gm/dL (2.3-3.5); Glucose 219 mg/dL (74-106); Osmolality,Calculated 286 (275-295); Potassium 4.1 mMol/L (3.4-5.1); Sodium 138 mMol/L (136-145); Thyroid Stimulating Hormone 1.97 uIU/mL (0.55-4.78); Total Protein 6.9 gm/dL (5.7-8.2); eGFR 55 See Note
[2024-11-13 16:13] LABS: Basophils % (Auto) 1 % (0-2.5); Eosinophils # (Auto) 0.2 Thou/mm3 (0.0-0.5); Eosinophils % (Auto) 3 % (0-10); Immature Granulocytes % (Auto) 0 % (0-0); Immature Granulocytes Auto 0.02 Thou/mm3 (0.00-0.00); Lymphocytes % (Auto) 36 % (10-50); Mean Corpuscular HGB Conc 34.4 g/dl (31.0-37.0); Mean Corpuscular Hemoglobin 30.6 pg (25.0-35.0); Mean Corpuscular Volume 89 fL (80-100); Monocytes # (Auto) 0.5 Thou/mm3 (0.0-0.8); Monocytes % (Auto) 9 % (0-12); Neutrophils # (Auto) 2.9 Thou/mm3 (1.8-7.7); Neutrophils % (Auto) 52 % (37-80); Nucleated Red Blood Cell % 0 /100 WBC (0); Platelet Count 327 Thou/mm3 (140-440); RDW Standard Deviation 39.8 fL (36.4-46.3); Red Blood Count 3.59 Miln/mm3 (4.00-5.20); White Blood Count 5.5 Thou/mm3 (3.6-11.0)
[2024-11-13 16:57] LABS: Alanine Aminotransferase 20 U/L (10-49); Albumin, Serum 4.3 gm/dL (3.4-4.8); Albumin/Globulin Ratio 1.7 (1.2-2.2); Alkaline Phosphatase 32 U/L (46-116); Anion Gap 7 (7-16); Aspartate Amino Transferase 23 U/L (0-34); BUN/Creatinine Ratio 15 Ratio (12-20); Bilirubin,Total 0.4 mg/dL (0.3-1.2); Blood Urea Nitrogen 19 mg/dL (9-23); Calcium 9.5 mg/dL (8.3-10.6); Calcium (Corrected) 9.5 mg/dL (8.5-10.1); Carbon Dioxide 25.5 mMol/L (20.0-31.0); Chloride 110 mMol/L (98-107); Creatinine (Component) 1.3 mg/dL (0.6-1.3); Globulin 2.6 gm/dL (2.3-3.5); Glucose 87 mg/dL (74-106); Osmolality,Calculated 284 (275-295); Potassium 3.7 mMol/L (3.4-5.1); Sodium 142 mMol/L (136-145); Thyroid Stimulating Hormone 1.72 uIU/mL (0.55-4.78); Total Protein 6.9 gm/dL (5.7-8.2); eGFR 45 See Note
--- NOTE | 2024-11-14 13:04 | CTCFLWUP_ITS ---
Patient: OUMOU SOLANO : 1960 Page 2 of 2 FOLLOW UP NOTE DATE OF SERVICE: 11/14/2024 NAME: OUMOU SOLANO ACCOUNT: [id number] : 1960 AGE: 64 INTERVAL HISTORY: Chief Complaint Numbness in fingers and feet, sensation of heat in feet, follow-up for stage 2 breast cancer treatment History of Present Illness Oumou Maldonado, a patient with stage 2 breast cancer, presents for follow-up of her ongoing chemotherapy treatment with Herceptin and Perjeta. She reports new symptoms of numbness in her fingers and feet, as well as a sensation of heat in her feet. The patient has been undergoing chemotherapy with Herceptin and Perjeta for her breast cancer. She mentions a thickened area in her breast, which may be related to previous surgery or lymphedema. Oumou is scheduled for one more Herceptin treatment before completing her chemotherapy regimen. Oumou expresses interest in obtaining a second opinion from Dr. Trammell regarding her condition and treatment plan. She also mentions concerns about stress affecting her cancer growth. The patient's overall health status appears stable, with normal heart function noted. ONCOLOGY HISTORY:?[facility] Oncology Hx? DIAGNOSIS: Malignant neoplasm of central portion of left female breast [ICD10] C50.112 DATE OF DIAGNOSIS: 06/28/2023 STAGE/TNM: T2 N0 M0 HER2 positive ER/CA negative TREATMENT HISTORY: Care?Plan Start?Date Cycle Day Intent TCH?1 12/12/2023 1 21 Curative?(adjuvant) Zoledronic?Acid?4?mg?adjuvant 01/04/2024 1 180 Curative?(adjuvant) HISTORY OF PRESENT ILLNESS: Oumou Solano is a 64-year-old SPA speaking female with following oncology history. 05/30/2021: Ms. Solano had bilateral screening mammograms 01/18/2023: Ms. Solano started feeling a lump in the left breast. She had bilateral digital mammograms 01/25/2023: Left breast ultrasound 06/28/2023: Ultrasound-guided left breast biopsy? 08/05/2023: Echocardiogram showed an ejection fraction of 55-60%. 08/12/2023: PET/CT scan 08/18/2023: MRI of the both breast with and without contrast 09/02/2023: CT scan of the abdomen and pelvis with IV contrast was done to evaluate the cause for abdominal pain 09/16/2023: Left breast lumpectomy with sentinel lymph node biopsy? 10/29/2023: Endometrial biopsy negative for malignancy. 11/03/2023: Echo cardiogram showed an ejection fraction of 60-65%. 12/21/2023: Patient received first cycle of TCH chemotherapy in the adjuvant setting. 10/24/2024 IMPRESSION: BI-RADS Category 4: Suspicious for malignancy Recommend ultrasound- guided biopsy of mass in the central to 3:00 position left breast described above to exclude recurrent malignancy Dictated By: Brad Vargas MD Signed By: <Electronically signed by Brad Vargas MD in [place]> 10/24/24 1648 OTHER MEDICAL HISTORY/CONDITIONS: DIABETES HYPERTENSION LEFT BREAST CANCER CHOLELITHIASIS CHEMO PORT PLACED AUGUST 2023 DR GRANT TUBAL LIGATION LEFT KNEE REPLACEMENT BLADDER SLING PROLAPSE 2ND SURGERY FAMILY HISTORY: Father:?DENIES Mother:?DENIES Sibling:?DENIES Children:?DENIES Cancer?History:?DENIES Patient?denies?family?cancer?history. 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 Aspirin Child - 81 mg Daily 2. atorvastatin - 10 mg Daily 3. Basaglar KwikPen - Twice a Day 4. famotidine - 20 mg Daily 5. gabapentin - 100 mg 1 Capsule Twice a Day 6. lisinopril - 40 mg Daily 7. metFORMIN - 500 mg 1 tab Twice a Day?Palabra Meds? Medications Last Reconciled by Jana Whitaker MA on 11/14/2024 ALLERGIES: No Known Drug Allergies REVIEW OF SYSTEMS: A complete 14-point review of systems was performed and is negative except as noted in interval history. PHYSICAL EXAMINATION:?[facility] PE? VITAL SIGNS: Temperature?99.5, B/P?157/84, Oxygen?Saturation?97% Weight?168?lbs (Change?since?11/13/24:?-2.4?lbs) PAIN: 2 - Mild pain ECOG Performance Status: 1 - Symptomatic; ambulatory; restricted in strenuous activity GENERAL APPEARANCE: Appears well, in no apparent distress, appropriately interactive. HEENT: Normocephalic, no temporal wasting, normal conjunctiva, no scleral icterus, normal hearing, lips without lesions, neck normal range of motion. CARDIOVASCULAR: Not assessed. PULMONARY: Normal respiratory effort, no respiratory distress or use of accessory muscles, speaking in full sentences, no tachypnea. EXTREMITIES: No pedal edema or cyanosis. SKIN: Normal skin appearance. NEUROLOGIC: Alert and oriented x4. PSHYCHIATRIC: Appropriate affect, mood normal, behavior normal, intact thought and speech. LABORATORY DATA: I have personally reviewed and interpreted each of the patient?s relevant lab tests, abnormal findings are below: Date 11/01/24 11/13/24 ??WHITE?BLOOD?COUNT?(Thou/mm3) 4.8 5.5 ??RED?BLOOD?COUNT?(Miln/mm3) 3.67?L 3.59?L ??HEMOGLOBIN?(gm/dl) 11.4?L 11.0?L ??HEMATOCRIT?(%) 33.2?L 32.0?L ??PLATELET?COUNT?(Thou/mm3) 267 327 ??NEUTROPHILS?%,?AUTO?(%) 55 52 ??LYMPH?%,?AUTO?(%) 32 36 ??NEUTROPHILS,?AUTO?(Thou/mm3) 2.6 2.9 ??GLUCOSE,RANDOM?(mg/dL) 219?H 87 ??BLOOD?UREA?NITROGEN?(mg/dL) 23 19 ??CREATININE?(mg/dL) 1.10 1.30 ??SODIUM?(mmol/L) 138 142 ??POTASSIUM?(mmol/L) 4.1 3.7 ??CHLORIDE?(mmol/L) 105 110?H ??CrCl?(CandG)?(ml/min) 48.31 40.58 ??AST/SGOT?(Unit/L) 23 23 ??ALT/SGPT?(Unit/L) 20 20 ??ALKALINE?PHOSPHATASE?(Unit/L) 41?L 32?L ??BILIRUBIN,?TOTAL?(mg/dL) 0.5 0.4 ??PROTEIN?TOTAL?(gm/dl) 6.9 6.9 ??ALBUMIN,?SERUM?(gm/dl) 4.3 4.3 ??GLOBULIN?(gm/dl) 2.6 2.6 ??ALBUMIN/GLOBULIN?RATIO 1.7 1.7 ??CALCIUM,?SERUM?(mg/dL) 9.9 9.5 ??CALCIUM?SERUM?(CORRECTED)?(mg/dL) 9.9 9.5 ASSESSMENT/PLAN:?Ranjit Young Assessment/Plan? 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 S/p left breast lumpectomy and sentinel lymph node biopsy on 09/16/2023. S/p ultrasound-guided biopsy of the left breast mass (06/28/2023) S/p TCH chemotherapy in the adjuvant setting.. Follow-up with radiation oncology Patient have multiple mammogram and ultrasound and still not very clear regarding her left breast Last ultrasound and mammogram were unclear Mri breast completed . it shows architectural distortion for more than 5 cm . Assessment: Patient has been receiving chemotherapy with Herceptin and Perjeta for stage 2 breast cancer. Recent MRI of both breasts revealed a 5.2 by 1.4 cm area of distortion in the left breast, which may be due to surgery or lymphedema. The radiologist recommended a biopsy, but surgical evaluation is preferred before proceeding. The area of architectural distortion corresponds to the site of previous cancer removal and radiation treatment. While recurrence is unlikely, further evaluation is necessary to rule out residual cancer. Plan: - Complete one more scheduled Herceptin treatment - Refer to surgeon for evaluation of left breast distortion - Consider mastectomy if residual cancer is found - Follow up with telephone appointment in 2 weeks - Offer referral options for second opinion ([facility] or [facility] specialists) - Continue stress management techniques Chemotherapy-induced Peripheral Neuropathy Patient reports numbness in fingers and feet, as well as a sensation of heat in the feet, which are likely side effects of the chemotherapy regimen. Plan: - Monitor symptoms - cold therapy with chemotherapy - echo is stable #2 type 2 diabetes currently on insulin. - pcp started Mounjaro (tirzepatide) for weight loss/diabeties - Recommend consultation with PCP for calcium and vitamin supplementation #3 history of hypertension follow with the PCP Echo every 3 months CBC CMP CBC CMP echo ORDERS: Order # Description [id number] Comprehensive Metabolic Panel - 12 + CBC with Auto Diff [id number] RETURN TO CLINIC: 4 weeks BILLING AND COMPLIANCE: I reviewed external records from providers outside my specialty as summarized above. I spent a total of 50 minutes on this patient?s care on the day of their visit excluding time spent related to any billed procedures. This time includes time spent with the patient as well as time spent documenting in the medical record, reviewing patients records and tests, obtaining history, placing orders, communicating with other healthcare professionals, counseling the patient, family or caregiver, and/or care coordination for the diagnoses above. Electronically Signed by: Sonido Young MD T: 1:01 PM CC: PCP: Serina Adrian Referring: Serina Adrian This document was completed utilizing speech recognition software. Grammatical errors, random word insertions, pronoun errors, and incomplete sentences are an occasional consequence of this system due to software limitations, ambient noise, and hardware issues. Any formal questions or concerns about the content, text or information contained within the body of this dictation should be directly addressed to the provider for clarification.
[2024-11-22 09:51] LABS: Basophils % (Auto) 1 % (0-2.5); Eosinophils # (Auto) 0.2 Thou/mm3 (0.0-0.5); Eosinophils % (Auto) 4 % (0-10); Hematocrit 32.3 % (36.0-46.0); Immature Granulocytes % (Auto) 1 % (0-0); Immature Granulocytes Auto 0.02 Thou/mm3 (0.00-0.00); Lymphocytes # (Auto) 1.5 Thou/mm3 (1.0-4.8); Lymphocytes % (Auto) 36 % (10-50); Mean Corpuscular HGB Conc 34.1 g/dl (31.0-37.0); Mean Corpuscular Hemoglobin 31.1 pg (25.0-35.0); Mean Corpuscular Volume 91 fL (80-100); Monocytes # (Auto) 0.3 Thou/mm3 (0.0-0.8); Monocytes % (Auto) 8 % (0-12); Neutrophils # (Auto) 2.1 Thou/mm3 (1.8-7.7); Neutrophils % (Auto) 51 % (37-80); Nucleated Red Blood Cell % 0 /100 WBC (0); Platelet Count 324 Thou/mm3 (140-440); RDW Standard Deviation 41.8 fL (36.4-46.3); Red Blood Count 3.54 Miln/mm3 (4.00-5.20); White Blood Count 4.1 Thou/mm3 (3.6-11.0)
[2024-11-22 10:22] LABS: Alanine Aminotransferase 20 U/L (10-49); Albumin, Serum 4.3 gm/dL (3.4-4.8); Albumin/Globulin Ratio 1.8 (1.2-2.2); Alkaline Phosphatase 29 U/L (46-116); Anion Gap 11 (7-16); Aspartate Amino Transferase 24 U/L (0-34); BUN/Creatinine Ratio 19 Ratio (12-20); Bilirubin,Total 0.5 mg/dL (0.3-1.2); Blood Urea Nitrogen 21 mg/dL (9-23); Calcium 9.3 mg/dL (8.3-10.6); Calcium (Corrected) 9.3 mg/dL (8.5-10.1); Carbon Dioxide 23.4 mMol/L (20.0-31.0); Chloride 106 mMol/L (98-107); Creatinine (Component) 1.1 mg/dL (0.6-1.3); Globulin 2.4 gm/dL (2.3-3.5); Glucose 250 mg/dL (74-106); Osmolality,Calculated 290 (275-295); Potassium 4.3 mMol/L (3.4-5.1); Sodium 140 mMol/L (136-145); Total Protein 6.7 gm/dL (5.7-8.2); eGFR 55 See Note
== END 2024-11-22 23:59 | disposition home or self-care (01) ==
LOC: SCTC 08:57
PROVIDERS: PCP Nurse Practitioner Family; Referring Provider Nurse Practitioner Family; Visit Provider Internal Medicine Hematology & Oncology
DX: Z51.11 Encounter for antineoplastic chemotherapy (principal); C50.812 Malignant neoplasm of overlapping sites of left female breast; Z17.1 Estrogen receptor negative status [ER-]; Z17.22 Progesterone receptor negative status; Z17.32 Human epidermal growth factor receptor 2 negative status; Z90.12 Acquired absence of left breast and nipple; N64.89 Other specified disorders of breast; G62.0 Drug-induced polyneuropathy; T45.1X5D Adverse effect of antineoplastic and immunosuppressive drugs, subsequent encounter; E11.9 Type 2 diabetes mellitus without complications; Z79.4 Long term (current) use of insulin; I10 Essential (primary) hypertension
CPT/HCPCS: 36591; 80053; 84443; 85025; 96413; 99213; A4216; J1642; J7040; J7050; Q5117; G0463

== ENCOUNTER 2024-12-06 09:30 | Outpatient (RCR) | payer OTHER, MEDICAID, SELFPAY ==
--- NOTE | 2024-12-14 14:16 | CTCFLWUP_ITS ---
Patient: OUMOU SOLANO : 1960 Page 7 of 8 FOLLOW UP NOTE DATE OF SERVICE: 12/06/2024 NAME: OUMOU SOLANO ACCOUNT: [id number] : 1960 AGE: 64 INTERVAL HISTORY: Chief Complaint Breast thickening, occasional breast pain History of Present Illness Joel Tamayo presents for follow-up regarding a breast concern. She has a history of previous breast surgery, which resulted in an inverted nipple. The patient reports experiencing pain in her breast, specifically in the middle area and underneath. The pain is intermittent, occurring sometimes on top and sometimes at the bottom of the breast. The exact onset and duration of this pain are not specified. There is also mention of a thickened area in the breast that was previously noted and required further evaluation. Oumou was referred for a breast biopsy, which has been approved to be done in [place], though an appointment has not yet been scheduled. She also has an appointment with Dr. Martinez, a general surgeon, scheduled for today at 11 AM. The patient does not recall if she has undergone a specific blood test (possibly Bryan) that was previously discussed. The patient's breast condition appears to be impacting her daily life, necessitating multiple medical appointments and consultations. No significant changes in overall health status since the last visit are reported. Review of Systems Musculoskeletal: Positive for breast pain, specifically in the middle and bottom of the breast. ONCOLOGY HISTORY: DIAGNOSIS: Malignant neoplasm of central portion of left female breast [ICD10] C50.112 DATE OF DIAGNOSIS: 06/28/2023 STAGE/TNM: T2 N0 M0 HER2 positive ER/WA negative TREATMENT HISTORY: Care?Plan Start?Date Cycle Day Intent TCH?1 12/12/2023 1 21 Curative?(adjuvant) Zoledronic?Acid?4?mg?adjuvant 01/04/2024 1 180 Curative?(adjuvant) Finished TCH and HP for 1 YEAR ? 11/23/2024 HISTORY OF PRESENT ILLNESS: Oumou Solano is a 64-year-old SPA speaking female with following oncology history. 05/30/2021: Ms. Solano had bilateral screening mammograms 01/18/2023: Ms. Solano started feeling a lump in the left breast. She had bilateral digital mammograms 01/25/2023: Left breast ultrasound 06/28/2023: Ultrasound-guided left breast biopsy? 08/05/2023: Echocardiogram showed an ejection fraction of 55-60%. 08/12/2023: PET/CT scan 08/18/2023: MRI of the both breast with and without contrast 09/02/2023: CT scan of the abdomen and pelvis with IV contrast was done to evaluate the cause for abdominal pain 09/16/2023: Left breast lumpectomy with sentinel lymph node biopsy? 10/29/2023: Endometrial biopsy negative for malignancy. 11/03/2023: Echo cardiogram showed an ejection fraction of 60-65%. 12/21/2023: Patient received first cycle of TCH chemotherapy in the adjuvant setting. 10/24/2024 IMPRESSION: BI-RADS Category 4: Suspicious for malignancy Recommend ultrasound- guided biopsy of mass in the central to 3:00 position left breast described above to exclude recurrent malignancy Dictated By: Brad Vargas MD Signed By: <Electronically signed by Brad Vargas MD in [place]> 10/24/24 1648 OTHER MEDICAL HISTORY/CONDITIONS: DIABETES HYPERTENSION LEFT BREAST CANCER CHOLELITHIASIS CHEMO PORT PLACED AUGUST 2023 DR GRANT TUBAL LIGATION LEFT KNEE REPLACEMENT BLADDER SLING PROLAPSE 2ND SURGERY FAMILY HISTORY: Father:?DENIES Mother:?DENIES Sibling:?DENIES Children:?DENIES Cancer?History:?DENIES Patient?denies?family?cancer?history. 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 Aspirin Child - 81 mg Daily 2. atorvastatin - 10 mg Daily 3. Basaglar KwikPen - Twice a Day 4. famotidine - 20 mg Daily 5. gabapentin - 100 mg 1 Capsule Twice a Day 6. lisinopril - 40 mg Daily 7. metFORMIN - 500 mg 1 tab Twice a Day 8. Mounjaro - 2.5 mg/0.5 mL 1 Weekly Medications Last Reconciled by Jana Whitaker MA on 12/06/2024 ALLERGIES: No Known Drug Allergies REVIEW OF SYSTEMS: A complete 14-point review of systems was performed and is negative except as noted in interval history. PHYSICAL EXAMINATION: VITAL SIGNS: Temperature?98.2, B/P?150/78, Oxygen?Saturation?99% PAIN: 2 - Mild pain ECOG Performance Status: 1 - Symptomatic; ambulatory; restricted in strenuous activity GENERAL APPEARANCE: Appears well, in no apparent distress, appropriately interactive. HEENT: Normocephalic, no temporal wasting, normal conjunctiva, no scleral icterus, normal hearing, lips without lesions, neck normal range of motion. CARDIOVASCULAR: Not assessed. PULMONARY: Normal respiratory effort, no respiratory distress or use of accessory muscles, speaking in full sentences, no tachypnea. EXTREMITIES: No pedal edema or cyanosis. SKIN: Normal skin appearance. NEUROLOGIC: Alert and oriented x4. PSHYCHIATRIC: Appropriate affect, mood normal, behavior normal, intact thought and speech. Physical Examination Breast: Right breast examined. Nipple appears inverted post-surgery. Area in the middle of the breast is thickened. Skin thickening noted. LABORATORY DATA: I have personally reviewed and interpreted each of the patient?s relevant lab tests, abnormal findings are below: Date 11/13/24 11/22/24 ??WHITE?BLOOD?COUNT?(Thou/mm3) 5.5 4.1 ??RED?BLOOD?COUNT?(Miln/mm3) 3.59?L 3.54?L ??HEMOGLOBIN?(gm/dl) 11.0?L 11.0?L ??HEMATOCRIT?(%) 32.0?L 32.3?L ??PLATELET?COUNT?(Thou/mm3) 327 324 ??NEUTROPHILS?%,?AUTO?(%) 52 51 ??LYMPH?%,?AUTO?(%) 36 36 ??NEUTROPHILS,?AUTO?(Thou/mm3) 2.9 2.1 ??GLUCOSE,RANDOM?(mg/dL) 87 250?H ??BLOOD?UREA?NITROGEN?(mg/dL) 19 21 ??CREATININE?(mg/dL) 1.30 1.10 ??SODIUM?(mmol/L) 142 140 ??POTASSIUM?(mmol/L) 3.7 4.3 ??CHLORIDE?(mmol/L) 110?H 106 ??CrCl?(CandG)?(ml/min) 40.58 48.11 ??AST/SGOT?(Unit/L) 23 24 ??ALT/SGPT?(Unit/L) 20 20 ??ALKALINE?PHOSPHATASE?(Unit/L) 32?L 29?L ??BILIRUBIN,?TOTAL?(mg/dL) 0.4 0.5 ??PROTEIN?TOTAL?(gm/dl) 6.9 6.7 ??ALBUMIN,?SERUM?(gm/dl) 4.3 4.3 ??GLOBULIN?(gm/dl) 2.6 2.4 ??ALBUMIN/GLOBULIN?RATIO 1.7 1.8 ??CALCIUM,?SERUM?(mg/dL) 9.5 9.3 ??CALCIUM?SERUM?(CORRECTED)?(mg/dL) 9.5 9.3 ASSESSMENT/PLAN: #1 stage IIa (pT2, snN0, cM0) ER negative, WA negative, 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 S/p left breast lumpectomy and sentinel lymph node biopsy on 09/16/2023. S/p ultrasound-guided biopsy of the left breast mass (06/28/2023) S/p TCH chemotherapy in the adjuvant setting.. and 1 year of HP pn 11/23/2024 Follow-up with radiation oncology Patient have multiple mammogram and ultrasound and still not very clear regarding her left breast Last ultrasound and mammogram were unclear Mri breast completed . it shows architectural distortion for more than 5 cm . Joel Tamayo, female patient with history of breast surgery, presenting for follow-up of a thickened area in the breast and pending biopsy. Breast mass/thickening Assessment: Patient presents with a thickened area in the breast, which was previously noted on examination. A biopsy has been ordered and is pending. The nipple appears inverted, which the patient reports occurred after previous breast surgery. On examination today, there is thickened skin in the middle area of the breast, which is tender to palpation. Based on clinical experience, the clinician does not suspect cancer but is awaiting biopsy results for definitive diagnosis. Plan: - Await results of pending breast biopsy to be performed in [place] - Patient to attend appointment with Dr. Martinez today for surgical consultation - Instructed patient not to undergo any surgical intervention until after review of biopsy results - Order Bryan genetic test - Recommend gentle breast massage with coconut oil or similar to address pain - Follow up after biopsy results and surgical consultation Chemotherapy-induced Peripheral Neuropathy Patient reports numbness in fingers and feet, as well as a sensation of heat in the feet, which are likely side effects of the chemotherapy regimen. Plan: - Monitor symptoms - cold therapy with chemotherapy - echo is stable #2 type 2 diabetes currently on insulin. - pcp started Mounjaro (tirzepatide) for weight loss/diabeties - Recommend consultation with PCP for calcium and vitamin supplementation #3 history of hypertension follow with the PCP RETURN TO CLINIC: 3 weeks BILLING AND COMPLIANCE: I reviewed external records from providers outside my specialty as summarized above. I spent a total of 50 minutes on this patient?s care on the day of their visit excluding time spent related to any billed procedures. This time includes time spent with the patient as well as time spent documenting in the medical record, reviewing patients records and tests, obtaining history, placing orders, communicating with other healthcare professionals, counseling the patient, family or caregiver, and/or care coordination for the diagnoses above. Electronically Signed by: Sonido Young MD T: 10:31 PM CC: PCP: Serina Adrian Referring: Serina Adrian This document was completed utilizing speech recognition software. Grammatical errors, random word insertions, pronoun errors, and incomplete sentences are an occasional consequence of this system due to software limitations, ambient noise, and hardware issues. Any formal questions or concerns about the content, text or information contained within the body of this dictation should be directly addressed to the provider for clarification.
== END 2024-12-23 23:59 | disposition home or self-care (01) ==
LOC: SCTC 09:30
PROVIDERS: PCP Nurse Practitioner Family; Referring Provider Nurse Practitioner Family; Visit Provider Internal Medicine Hematology & Oncology
DX: Z51.11 Encounter for antineoplastic chemotherapy (principal); C50.812 Malignant neoplasm of overlapping sites of left female breast; Z17.1 Estrogen receptor negative status [ER-]; Z17.22 Progesterone receptor negative status; Z17.32 Human epidermal growth factor receptor 2 negative status; N64.59 Other signs and symptoms in breast; I10 Essential (primary) hypertension; E11.9 Type 2 diabetes mellitus without complications; Z79.4 Long term (current) use of insulin; G62.0 Drug-induced polyneuropathy; T45.1X5D Adverse effect of antineoplastic and immunosuppressive drugs, subsequent encounter
CPT/HCPCS: 96365; 96413; 99212; A4216; J1642; J7040; J7050; Q5117; G0463

== ENCOUNTER 2025-01-16 10:59 | Outpatient (RCR) | payer OTHER, MEDICAID, SELFPAY ==
--- NOTE | 2025-01-16 12:45 | CTCFLWUP_ITS ---
Patient: OUMOU SOLANO : 1960 Page 2 of 2 FOLLOW UP NOTE DATE OF SERVICE: 01/16/2025 NAME: OUMOU SOLANO ACCOUNT: [id number] : 1960 AGE: 64 INTERVAL HISTORY: Patient has been complaining of left breast pain. Pain is at the same site where patient had previous surgery. Patient was seen by her breast surgeon but did not wanted to do biopsy with the previous surgeon. Patient has been referred to [place] for interventional radiology to do biopsy. Patient has been approved for biopsy last week and will be scheduled soon by the interventional radiologist in [place] Patient is also complaining of increased night sweats and appetite changes. Patient is not on weight loss medicine but still losing weight. Denies any swelling in any body part. ONCOLOGY HISTORY:?[facility] Oncology Hx? DIAGNOSIS: Malignant neoplasm of central portion of left female breast [ICD10] C50.112 DATE OF DIAGNOSIS: 06/28/2023 STAGE/TNM: T2 N0 M0 HER2 positive ER/AK negative TREATMENT HISTORY: Care?Plan Start?Date Cycle Day Intent TCH?1 12/12/2023 1 21 Curative?(adjuvant) Zoledronic?Acid?4?mg?adjuvant 01/04/2024 1 180 Curative?(adjuvant) HISTORY OF PRESENT ILLNESS: Oumou Solano is a 64-year-old SPA speaking female with following oncology history. 05/30/2021: Ms. Solano had bilateral screening mammograms 01/18/2023: Ms. Solano started feeling a lump in the left breast. She had bilateral digital mammograms 01/25/2023: Left breast ultrasound 06/28/2023: Ultrasound-guided left breast biopsy? 08/05/2023: Echocardiogram showed an ejection fraction of 55-60%. 08/12/2023: PET/CT scan 08/18/2023: MRI of the both breast with and without contrast 09/02/2023: CT scan of the abdomen and pelvis with IV contrast was done to evaluate the cause for abdominal pain 09/16/2023: Left breast lumpectomy with sentinel lymph node biopsy? 10/29/2023: Endometrial biopsy negative for malignancy. 11/03/2023: Echo cardiogram showed an ejection fraction of 60-65%. 12/21/2023: Patient received first cycle of TCH chemotherapy in the adjuvant setting. 10/24/2024 IMPRESSION: BI-RADS Category 4: Suspicious for malignancy Recommend ultrasound- guided biopsy of mass in the central to 3:00 position left breast described above to exclude recurrent malignancy Dictated By: Brad Vargas MD Signed By: <Electronically signed by Brad Vargas MD in [place]> 10/24/24 1648 OTHER MEDICAL HISTORY/CONDITIONS: DIABETES HYPERTENSION LEFT BREAST CANCER CHOLELITHIASIS CHEMO PORT PLACED AUGUST 2023 DR GRANT TUBAL LIGATION LEFT KNEE REPLACEMENT BLADDER SLING PROLAPSE 2ND SURGERY FAMILY HISTORY: Father:?DENIES Mother:?DENIES Sibling:?DENIES Children:?DENIES Cancer?History:?DENIES Patient?denies?family?cancer?history. 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 Aspirin Child - 81 mg Daily 2. atorvastatin - 10 mg Daily 3. Basaglar KwikPen - Twice a Day 4. famotidine - 20 mg Daily 5. gabapentin - 100 mg 1 Capsule Twice a Day 6. lisinopril - 40 mg Daily 7. metFORMIN - 500 mg 1 tab Twice a Day?Palabra Meds? Medications Last Reconciled by Oumou Scales MA on 01/16/2025 ALLERGIES: No Known Drug Allergies REVIEW OF SYSTEMS: A complete 14-point review of systems was performed and is negative except as noted in interval history. PHYSICAL EXAMINATION:?CloneBlock PE? VITAL SIGNS: Temperature?99.8, B/P?133/78, Oxygen?Saturation?96% PAIN: 0 - No pain ECOG Performance Status: 1 - Symptomatic; ambulatory; restricted in strenuous activity GENERAL APPEARANCE: Appears well, in no apparent distress, appropriately interactive. HEENT: Normocephalic, no temporal wasting, normal conjunctiva, no scleral icterus, normal hearing, lips without lesions, neck normal range of motion. CARDIOVASCULAR: Not assessed. PULMONARY: Normal respiratory effort, no respiratory distress or use of accessory muscles, speaking in full sentences, no tachypnea. EXTREMITIES: No pedal edema or cyanosis. SKIN: Normal skin appearance. NEUROLOGIC: Alert and oriented x4. PSHYCHIATRIC: Appropriate affect, mood normal, behavior normal, intact thought and speech. Physical Examination Breast: Right breast examined. Nipple appears inverted post-surgery. Area in the middle of the breast is thickened. Skin thickening noted. LABORATORY DATA: I have personally reviewed and interpreted each of the patient?s relevant lab tests, abnormal findings are below: Date 11/13/24 11/22/24 ??WHITE?BLOOD?COUNT?(Thou/mm3) 5.5 4.1 ??RED?BLOOD?COUNT?(Miln/mm3) 3.59?L 3.54?L ??HEMOGLOBIN?(gm/dl) 11.0?L 11.0?L ??HEMATOCRIT?(%) 32.0?L 32.3?L ??PLATELET?COUNT?(Thou/mm3) 327 324 ??NEUTROPHILS?%,?AUTO?(%) 52 51 ??LYMPH?%,?AUTO?(%) 36 36 ??NEUTROPHILS,?AUTO?(Thou/mm3) 2.9 2.1 ??GLUCOSE,RANDOM?(mg/dL) 87 250?H ??BLOOD?UREA?NITROGEN?(mg/dL) 19 21 ??CREATININE?(mg/dL) 1.30 1.10 ??SODIUM?(mmol/L) 142 140 ??POTASSIUM?(mmol/L) 3.7 4.3 ??CHLORIDE?(mmol/L) 110?H 106 ??CrCl?(CandG)?(ml/min) 40.58 48.11 ??AST/SGOT?(Unit/L) 23 24 ??ALT/SGPT?(Unit/L) 20 20 ??ALKALINE?PHOSPHATASE?(Unit/L) 32?L 29?L ??BILIRUBIN,?TOTAL?(mg/dL) 0.4 0.5 ??PROTEIN?TOTAL?(gm/dl) 6.9 6.7 ??ALBUMIN,?SERUM?(gm/dl) 4.3 4.3 ??GLOBULIN?(gm/dl) 2.6 2.4 ??ALBUMIN/GLOBULIN?RATIO 1.7 1.8 ??CALCIUM,?SERUM?(mg/dL) 9.5 9.3 ??CALCIUM?SERUM?(CORRECTED)?(mg/dL) 9.5 9.3 ASSESSMENT/PLAN:?Ranjit Young Assessment/Plan? 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 S/p left breast lumpectomy and sentinel lymph node biopsy on 09/16/2023. S/p ultrasound-guided biopsy of the left breast mass (06/28/2023) S/p TCH chemotherapy in the adjuvant setting.. and 1 year of HP pn 11/23/2024 Completed radiation Mri breast completed . it shows architectural distortion for more than 5 cm . Breast mass/thickening Assessment: Patient presents with a thickened area in the breast, which was previously noted on examination. A biopsy has been ordered and is pending. The nipple appears inverted, which the patient reports occurred after previous breast surgery. On examination today, there is thickened skin in the middle area of the breast, which is tender to palpation. Based on clinical experience, the clinician does not suspect cancer but is awaiting biopsy results for definitive diagnosis. Graciela testing has been negative Plan: - Await results of pending breast biopsy to be performed in [place] - Order Bryan genetic test - Recommend gentle breast massage with coconut oil or similar to address pain. Ordered lymphedema clinic referral - Follow up after biopsy results . #2 B symptoms Patient have night sweats as well as appetite changes and unintentional weight loss per patient Will get CT scan chest abdomen pelvis to evaluate for any underlying metastatic or lymphoma CT chest abdomen pelvis with IV contrast requested Chemotherapy-induced Peripheral Neuropathy Patient reports numbness in fingers and feet, as well as a sensation of heat in the feet, which are likely side effects of the chemotherapy regimen. Patient's symptoms have been stable Plan: - Monitor symptoms - cold therapy with chemotherapy - echo is stable #3 type 2 diabetes and hypertension Advised to follow-up with PCP #4 osteoporosis Continue Zometa Advised to take calcium and vitamin D3 daily ORDERS: Order # Description [id number] Comprehensive Metabolic Panel - 12 + CBC with Auto Diff + MD Follow Up [id number] Scan + Chest + Abdomen and Pelvis + With W/O Contrast [id number] Iron Panel + Ferritin + Vitamin B-12 + Folic Acid; Serum + Reticulocyte Count [id number] Infusion 1 Hour [id number] Infusion 1 Hour [id number] Infusion 1 Hour [id number] Infusion 1 Hour RETURN TO CLINIC: BILLING AND COMPLIANCE: I reviewed external records from providers outside my specialty as summarized above. I spent a total of 50 minutes on this patient?s care on the day of their visit excluding time spent related to any billed procedures. This time includes time spent with the patient as well as time spent documenting in the medical record, reviewing patients records and tests, obtaining history, placing orders, communicating with other healthcare professionals, counseling the patient, family or caregiver, and/or care coordination for the diagnoses above. Electronically Signed by: Sonido Young MD T: 12:42 PM CC: PCP: Serina Adrian Referring: Serina Adrian This document was completed utilizing speech recognition software. Grammatical errors, random word insertions, pronoun errors, and incomplete sentences are an occasional consequence of this system due to software limitations, ambient noise, and hardware issues. Any formal questions or concerns about the content, text or information contained within the body of this dictation should be directly addressed to the provider for clarification.
== END 2025-01-22 23:59 | disposition home or self-care (01) ==
LOC: SCTC 10:59
PROVIDERS: PCP Nurse Practitioner Family; Referring Provider Nurse Practitioner Family; Visit Provider Internal Medicine Hematology & Oncology
DX: C50.812 Malignant neoplasm of overlapping sites of left female breast (principal); Z17.1 Estrogen receptor negative status [ER-]; Z17.22 Progesterone receptor negative status; Z17.32 Human epidermal growth factor receptor 2 negative status; Z92.3 Personal history of irradiation; Z92.21 Personal history of antineoplastic chemotherapy; N64.89 Other specified disorders of breast; R61 Generalized hyperhidrosis; G62.0 Drug-induced polyneuropathy; T45.1X5D Adverse effect of antineoplastic and immunosuppressive drugs, subsequent encounter; E11.9 Type 2 diabetes mellitus without complications; I10 Essential (primary) hypertension; M81.0 Age-related osteoporosis without current pathological fracture
CPT/HCPCS: 99212; G0463

== ENCOUNTER → 2025-01-17 | Outpatient (CLI) | payer OTHER, MEDICAID, SELFPAY ==
--- NOTE | 2025-01-17 14:00 | ECHO_ITS ---
Transthoracic Echo Report Ht (in): 61 Wt (lb): 168 Exam Location: Echo Lab Status: Preadmit [employer]itting Machine Operator: Latia Mohan Indications: Procedure Performed: BP: / HR: Technical Quality: Adequate MEASUREMENTS (Male / Female) Normal Values 2D ECHO LV Diastolic Diameter PLAX 4.1 cm 4.2 - 5.9 / 3.9 - 5.3 cm LV Systolic Diameter PLAX 2.6 cm IVS Diastolic Thickness 0.9 cm 0.6 - 1.0 / 0.6 - 0.9 cm LVPW Diastolic Thickness 1.0 cm 0.6 - 1.0 / 0.6 - 0.9 cm LV Relative Wall Thickness 0.5 LVOT Diameter 2.2 cm Ascending Aorta Diameter 3.1 cm DOPPLER AV Peak Velocity 196.0 cm/s AV Peak Gradient 15.4 mmHg AI Peak Velocity 404.0 cm/s AI Peak Gradient 65.3 mmHg AI Pressure Half Time 611.0 ms LVOT Peak Velocity 91.7 cm/s LVOT Peak Gradient 3.4 mmHg AV Area Cont Eq pk 1.8 cm? MV Area PHT 3.3 cm? Mitral E Point Velocity 63.1 cm/s Mitral A Point Velocity 73.7 cm/s Mitral E to A Ratio 0.9 LV E' Lateral Velocity 7.3 cm/s Mitral E to LV E' Lateral Ratio 8.7 LV E' Septal Velocity 4.5 cm/s Mitral E to LV E' Septal Ratio 14.1 PV Peak Velocity 77.4 cm/s PV Peak Gradient 2.4 mmHg FINDINGS Left Ventricle Normal left ventricular size, wall thickness, systolic function with no obvious regional wall motion abnormalities. Normal left ventricular diastolic filling pattern for age. The ejection fraction is visually estimated at 65 %. Right Ventricle The right ventricle is normal in size and systolic function. The estimated right ventricular systolic pressure can not be determined due to innadequate Doppler signal. Left Atrium The left atrium is moderately enlarged. Right Atrium The right atrium is normal by two-dimensional imaging, color flow and Doppler imaging with no structural abnormalities, no thrombus formation present. Atrial Septum The interatrial septum appears normal with no evidence of a shunt. Aorta The aorta is normal by two-dimensional, color flow and Doppler interrogation. Mitral Valve The mitral valve annulus is moderately calcified. There is no significant mitral valve regurgitation, stenosis or prolapse. Aortic Valve The aortic valve is trileaflet and moderately calcified without stenosis. There is mild aortic regurgitation. Tricuspid Valve The tricuspid valve is normal by two-dimensional, color flow and Doppler interrogation. There is trace tricuspid regurgitation. Pulmonic Valve The pulmonic valve is not well visualized. There is trace pulmonic regurgitation. Vessels The pulmonary artery appears normal. The inferior vena cava pulmonary and hepatic veins appear normal. Pericardium The pericardium is normal by two-dimensional imaging. There is no significant pericardial effusion. CONCLUSIONS Indications: Malignant Neoplasm of Unspecified Site of Left Female Breast Normal LV. Estimated EF 65%. Normal Diastology. Normal RV. Moderate MAC. Moderate AOV Calcification. Mild AI. Trace PI. No Pericardial Effusion. Misha Styles (Electronically Signed) Final Date: 17 January 2025 15:58
== END | disposition home or self-care (01) ==
PROVIDERS: PCP Nurse Practitioner Family; Referring Provider Internal Medicine Hematology & Oncology; Visit Provider Internal Medicine Hematology & Oncology
DX: I08.2 Rheumatic disorders of both aortic and tricuspid valves (principal); I37.1 Nonrheumatic pulmonary valve insufficiency; C50.912 Malignant neoplasm of unspecified site of left female breast
CPT/HCPCS: 93306

== ENCOUNTER → 2025-02-15 | Outpatient (CLI) | payer OTHER, MEDICAID, SELFPAY ==
--- NOTE | 2025-02-15 14:00 | XR_ITS ---
Examination: CT chest with intravenous contrast CT abdomen with intravenous contrast CT pelvis with intravenous contrast CT chest without intravenous contrast CT abdomen without intravenous contrast CT pelvis without intravenous contrast 2-D coronal and sagittal reconstructions Time of exam: February 15, 2025 1534 hours, comparison December 17, 2023, MR breast October 24, 2024 INDICATIONS: Diagnosis malignant neoplasm unspecified site left femur, left breast cancer lumpectomy 2 years ago, restaging CTDI: vol (mGy) : 26.1 DLP: (mGycm): 1306 Technique: Multiple axial images of the chest, abdomen and pelvis with intravenous contrast, 3.0 mm slice thickness. Images obtained post intravenous injection Isovue 370 60 cc. 2-D sagittal and coronal reconstructions. Low dose protocols were performed. One or more of the following dose reduction techniques were used; automated exposure control, adjustment of the mA and/or KV according to patient size, use of iterative reconstruction technique. Findings: Skin thickening and architectural distortion left breast noted on the prior CT chest study No chest wall mass, no interval axillary lymphadenopathy 5 mm pulmonary nodule left upper lobe image 111 No pneumonia or pulmonary edema Gallstones No focal liver or splenic lesion No pancreatic or adrenal mass Moderate bilateral renal parenchymal scar formation No hydronephrosis Aorta normal size No abdominal or pelvic lymphadenopathy No pericecal inflammatory change No bowel obstruction Retroverted uterus Moderate osteopenia Urinary bladder intact IMPRESSION: 5 mm pulmonary nodule left upper lobe, recommend continued 6 month follow-up CT chest without contrast Cholelithiasis No abdominal or pelvic mass. No abdominal or pelvic lymphadenopathy
[2025-02-15 14:50] LABS: Basophils # (Auto) 0.1 Thou/mm3 (0.0-0.2); Basophils % (Auto) 1 % (0-2.5); Eosinophils # (Auto) 0.2 Thou/mm3 (0.0-0.5); Eosinophils % (Auto) 2 % (0-10); Hematocrit 37.4 % (36.0-46.0); Hemoglobin 12.6 g/dL (12.0-16.0); Immature Granulocytes Auto 0.05 Thou/mm3 (0.00-0.00); Lymphocytes # (Auto) 3.3 Thou/mm3 (1.0-4.8); Lymphocytes % (Auto) 36 % (10-50); Mean Corpuscular HGB Conc 33.7 g/dl (31.0-37.0); Mean Corpuscular Hemoglobin 31.2 pg (25.0-35.0); Mean Corpuscular Volume 93 fL (80-100); Monocytes # (Auto) 0.7 Thou/mm3 (0.0-0.8); Monocytes % (Auto) 7 % (0-12); Neutrophils # (Auto) 5.0 Thou/mm3 (1.8-7.7); Neutrophils % (Auto) 54 % (37-80); Nucleated Red Blood Cell # 0.00 Thou/mm3 (0.00-0.00); Nucleated Red Blood Cell % 0 /100 WBC (0); Platelet Count 314 Thou/mm3 (140-440); RDW Standard Deviation 43.1 fL (36.4-46.3); Red Blood Count 4.04 Miln/mm3 (4.00-5.20); White Blood Count 9.2 Thou/mm3 (3.6-11.0)
[2025-02-15 15:08] LABS: Alanine Aminotransferase 27 U/L (10-49); Albumin, Serum 4.7 gm/dL (3.4-4.8); Albumin/Globulin Ratio 2.0 (1.2-2.2); Alkaline Phosphatase 52 U/L (46-116); Anion Gap 11 (7-16); Aspartate Amino Transferase 26 U/L (0-34); BUN/Creatinine Ratio 25 Ratio (12-20); Bilirubin,Total 0.5 mg/dL (0.3-1.2); Blood Urea Nitrogen 25 mg/dL (9-23); Calcium 9.9 mg/dL (8.3-10.6); Calcium (Corrected) 9.9 mg/dL (8.5-10.1); Carbon Dioxide 28.0 mMol/L (20.0-31.0); Chloride 103 mMol/L (98-107); Creatinine (Component) 1.0 mg/dL (0.6-1.3); Globulin 2.4 gm/dL (2.3-3.5); Glucose 144 mg/dL (74-106); Osmolality,Calculated 290 (275-295); Potassium 4.2 mMol/L (3.4-5.1); Sodium 142 mMol/L (136-145); Total Protein 7.1 gm/dL (5.7-8.2); eGFR > 60 See Note
== END | disposition home or self-care (01) ==
LOC: CCTX 14:09 → SCTO 14:16
PROVIDERS: PCP Nurse Practitioner Family; Referring Provider Internal Medicine Hematology & Oncology; Visit Provider Radiology Diagnostic Radiology
DX: R91.1 Solitary pulmonary nodule (principal); K80.20 Calculus of gallbladder without cholecystitis without obstruction; C50.912 Malignant neoplasm of unspecified site of left female breast; C50.112 Malignant neoplasm of central portion of left female breast
CPT/HCPCS: 36415; 71270; 74178; 80053; 85025; A4649; Q9967

== ENCOUNTER 2025-03-14 08:32 | Outpatient (RCR) | payer OTHER, MEDICAID, SELFPAY ==
[2025-03-06 09:31] LABS: Basophils # (Auto) 0.0 Thou/mm3 (0.0-0.2); Basophils % (Auto) 0 % (0-2.5); Eosinophils # (Auto) 0.1 Thou/mm3 (0.0-0.5); Eosinophils % (Auto) 2 % (0-10); Hematocrit 35.2 % (36.0-46.0); Hemoglobin 11.9 g/dL (12.0-16.0); Immature Granulocytes Auto 0.02 Thou/mm3 (0.00-0.00); Lymphocytes # (Auto) 1.6 Thou/mm3 (1.0-4.8); Lymphocytes % (Auto) 28 % (10-50); Mean Corpuscular HGB Conc 33.8 g/dl (31.0-37.0); Mean Corpuscular Hemoglobin 31.7 pg (25.0-35.0); Mean Corpuscular Volume 94 fL (80-100); Monocytes # (Auto) 0.4 Thou/mm3 (0.0-0.8); Monocytes % (Auto) 8 % (0-12); Neutrophils # (Auto) 3.5 Thou/mm3 (1.8-7.7); Neutrophils % (Auto) 61 % (37-80); Nucleated Red Blood Cell # 0.00 Thou/mm3 (0.00-0.00); Nucleated Red Blood Cell % 0 /100 WBC (0); Platelet Count 265 Thou/mm3 (140-440); RDW Standard Deviation 42.6 fL (36.4-46.3); Red Blood Count 3.75 Miln/mm3 (4.00-5.20); White Blood Count 5.7 Thou/mm3 (3.6-11.0)
[2025-03-06 09:52] LABS: Alanine Aminotransferase 25 U/L (10-49); Albumin, Serum 4.3 gm/dL (3.4-4.8); Albumin/Globulin Ratio 2.0 (1.2-2.2); Alkaline Phosphatase 54 U/L (46-116); Anion Gap 9 (7-16); Aspartate Amino Transferase 22 U/L (0-34); BUN/Creatinine Ratio 20 Ratio (12-20); Bilirubin,Total 0.6 mg/dL (0.3-1.2); Blood Urea Nitrogen 20 mg/dL (9-23); Calcium 9.3 mg/dL (8.3-10.6); Calcium (Corrected) 9.3 mg/dL (8.5-10.1); Carbon Dioxide 23.8 mMol/L (20.0-31.0); Chloride 103 mMol/L (98-107); Creatinine (Component) 1.0 mg/dL (0.6-1.3); Globulin 2.2 gm/dL (2.3-3.5); Glucose 308 mg/dL (74-106); Osmolality,Calculated 286 (275-295); Potassium 4.4 mMol/L (3.4-5.1); Sodium 136 mMol/L (136-145); Total Protein 6.5 gm/dL (5.7-8.2); eGFR > 60 See Note
--- NOTE | 2025-03-07 15:12 | CTCFLWUP_ITS ---
Patient: OUMOU SOLANO : 1960 Page 6 of 9 FOLLOW UP NOTE DATE OF SERVICE: 03/07/2025 NAME: OUMOU SOLANO ACCOUNT: [id number] : 1960 AGE: 64 INTERVAL HISTORY: Patient has been complaining of left breast pain. Pain is at the same site where patient had previous surgery. Patient have appointment in may 2025 and this is causing lots of anxiety for her . ONCOLOGY HISTORY:?Clone[facility] Oncology Hx? DIAGNOSIS: Malignant neoplasm of central portion of left female breast [ICD10] C50.112 DATE OF DIAGNOSIS: 06/28/2023 STAGE/TNM: T2 N0 M0 HER2 positive ER/WI negative TREATMENT HISTORY: Care?Plan Start?Date Cycle Day Intent TCH?1 12/12/2023 1 21 Curative?(adjuvant) Zoledronic?Acid?4?mg?adjuvant 01/04/2024 1 180 Curative?(adjuvant) HISTORY OF PRESENT ILLNESS: Oumou Solano is a 64-year-old SPA speaking female with following oncology history. 05/30/2021: Ms. Solano had bilateral screening mammograms 01/18/2023: Ms. Solano started feeling a lump in the left breast. She had bilateral digital mammograms 01/25/2023: Left breast ultrasound 06/28/2023: Ultrasound-guided left breast biopsy? 08/05/2023: Echocardiogram showed an ejection fraction of 55-60%. 08/12/2023: PET/CT scan 08/18/2023: MRI of the both breast with and without contrast 09/02/2023: CT scan of the abdomen and pelvis with IV contrast was done to evaluate the cause for abdominal pain 09/16/2023: Left breast lumpectomy with sentinel lymph node biopsy? 10/29/2023: Endometrial biopsy negative for malignancy. 11/03/2023: Echo cardiogram showed an ejection fraction of 60-65%. 12/21/2023: Patient received first cycle of TCH chemotherapy in the adjuvant setting. 10/24/2024 IMPRESSION: BI-RADS Category 4: Suspicious for malignancy Recommend ultrasound- guided biopsy of mass in the central to 3:00 position left breast described above to exclude recurrent malignancy Dictated By: Brad Vargas MD Signed By: <Electronically signed by Brad Vargas MD in [place]> 10/24/24 1648 OTHER MEDICAL HISTORY/CONDITIONS: DIABETES HYPERTENSION LEFT BREAST CANCER CHOLELITHIASIS CHEMO PORT PLACED AUGUST 2023 DR GRANT TUBAL LIGATION LEFT KNEE REPLACEMENT BLADDER SLING PROLAPSE 2ND SURGERY FAMILY HISTORY: Father:?DENIES Mother:?DENIES Sibling:?DENIES Children:?DENIES Cancer?History:?DENIES Patient?denies?family?cancer?history. 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 Aspirin Child - 81 mg Daily 2. atorvastatin - 10 mg Daily 3. Basaglar KwikPen - Twice a Day 4. famotidine - 20 mg Daily 5. gabapentin - 100 mg 1 Capsule Twice a Day 6. lisinopril - 40 mg Daily 7. metFORMIN - 500 mg 1 tab Twice a Day?Palabra Meds? Medications Last Reconciled by Oumou Gillespie MD on 03/07/2025 ALLERGIES: No Known Drug Allergies REVIEW OF SYSTEMS: A complete 14-point review of systems was performed and is negative except as noted in interval history. PHYSICAL EXAMINATION:?CloneBlock PE? VITAL SIGNS: Temperature?99.5, B/P?136/86, Oxygen?Saturation?97% Weight?167?lbs (Change?since?03/06/25:?-0.6?lbs) PAIN: 0 - No pain ECOG Performance Status: 0 - Asymptomatic and fully active GENERAL APPEARANCE: Appears well, in no apparent distress, appropriately interactive. HEENT: Normocephalic, no temporal wasting, normal conjunctiva, no scleral icterus, normal hearing, lips without lesions, neck normal range of motion. CARDIOVASCULAR: Not assessed. PULMONARY: Normal respiratory effort, no respiratory distress or use of accessory muscles, speaking in full sentences, no tachypnea. EXTREMITIES: No pedal edema or cyanosis. SKIN: Normal skin appearance. NEUROLOGIC: Alert and oriented x4. PSHYCHIATRIC: Appropriate affect, mood normal, behavior normal, intact thought and speech. Physical Examination Breast: Right breast examined. Nipple appears inverted post-surgery. Area in the middle of the breast is thickened. Skin thickening noted. LABORATORY DATA: I have personally reviewed and interpreted each of the patient?s relevant lab tests, abnormal findings are below: Date 02/15/25 03/06/25 ??WHITE?BLOOD?COUNT?(Thou/mm3) 9.2 5.7 ??RED?BLOOD?COUNT?(Miln/mm3) 4.04 3.75?L ??HEMOGLOBIN?(gm/dl) 12.6 11.9?L ??HEMATOCRIT?(%) 37.4 35.2?L ??PLATELET?COUNT?(Thou/mm3) 314 265 ??NEUTROPHILS?%,?AUTO?(%) 54 61 ??LYMPH?%,?AUTO?(%) 36 28 ??NEUTROPHILS,?AUTO?(Thou/mm3) 5.0 3.5 ??GLUCOSE,RANDOM?(mg/dL) 144?H 308?H ??BLOOD?UREA?NITROGEN?(mg/dL) 25?H 20 ??CREATININE?(mg/dL) 1.00 1.00 ??SODIUM?(mmol/L) 142 136 ??POTASSIUM?(mmol/L) 4.2 4.4 ??CHLORIDE?(mmol/L) 103 103 ??CrCl?(CandG)?(ml/min) 52.85 52.70 ??AST/SGOT?(Unit/L) 26 22 ??ALT/SGPT?(Unit/L) 27 25 ??ALKALINE?PHOSPHATASE?(Unit/L) 52 54 ??BILIRUBIN,?TOTAL?(mg/dL) 0.5 0.6 ??PROTEIN?TOTAL?(gm/dl) 7.1 6.5 ??ALBUMIN,?SERUM?(gm/dl) 4.7 4.3 ??GLOBULIN?(gm/dl) 2.4 2.2?L ??ALBUMIN/GLOBULIN?RATIO 2.0 2.0 ??CALCIUM,?SERUM?(mg/dL) 9.9 9.3 ??CALCIUM?SERUM?(CORRECTED)?(mg/dL) 9.9 9.3 ASSESSMENT/PLAN:?Ranjit Young Assessment/Plan? #1 stage IIa (pT2, snN0, cM0) ER negative, WI negative, 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 S/p left breast lumpectomy and sentinel lymph node biopsy on 09/16/2023. S/p ultrasound-guided biopsy of the left breast mass (06/28/2023) S/p TCH chemotherapy in the adjuvant setting.. and 1 year of HP pn 11/23/2024 Completed radiation Mri breast completed . it shows architectural distortion for more than 5 cm . Breast mass/thickening Assessment: Patient presents with a thickened area in the breast, which was previously noted on examination. A biopsy has been ordered and is pending. The nipple appears inverted, which the patient reports occurred after previous breast surgery. On examination today, there is thickened skin in the middle area of the breast, which is tender to palpation. Based on clinical experience, the clinician does not suspect cancer but is awaiting biopsy results for definitive diagnosis. Graciela testing has been negative Will get ultrasound of breast - Recommend gentle breast massage with coconut oil or similar to address pain. Ordered lymphedema clinic referral - Follow up after ultrasound #2 B symptoms Patient have night sweats as well as appetite changes and unintentional weight loss per patient Will get CT scan chest abdomen pelvis to evaluate for any underlying metastatic or lymphoma CT chest abdomen pelvis with IV contrast requested #3 type 2 diabetes and hypertension Advised to follow-up with PCP #4 osteoporosis Continue Zometa Advised to take calcium and vitamin D3 daily ORDERS: Order # Description [id number] Unilateral + Left [id number] Follow Up 4 Week [id number] Infusion 1 Hour [id number] Infusion 1 Hour [id number] Infusion 1 Hour [id number] Infusion 1 Hour RETURN TO CLINIC: I reviewed the diagnosis, prognosis, and recommended treatment/procedure options with the patient (and/or their legal b2b outside sales representative), including the potential benefits, risks, side effects and alternative therapies. We also discussed the option of no treatment and the possibility of clinical trial participation, if applicable. All questions were addressed, and they demonstrated understanding. They provided informed consent to proceed with the proposed plan of care. BILLING AND COMPLIANCE: I reviewed external records from providers outside my specialty as summarized above. I spent a total of 50 minutes on this patient?s care on the day of their visit excluding time spent related to any billed procedures. This time includes time spent with the patient as well as time spent documenting in the medical record, reviewing patients records and tests, obtaining history, placing orders, communicating with other healthcare professionals, counseling the patient, family or caregiver, and/or care coordination for the diagnoses above. Electronically Signed by: Sonido Young MD T: 3:09 PM CC: PCP: Serina Adrian Referring: Serina Adrian This document was completed utilizing speech recognition software. Grammatical errors, random word insertions, pronoun errors, and incomplete sentences are an occasional consequence of this system due to software limitations, ambient noise, and hardware issues. Any formal questions or concerns about the content, text or information contained within the body of this dictation should be directly addressed to the provider for clarification.
== END 2025-03-25 23:59 | disposition home or self-care (01) ==
LOC: SCTC 08:32
PROVIDERS: PCP Nurse Practitioner Family; Referring Provider Nurse Practitioner Family; Visit Provider Internal Medicine Hematology & Oncology
DX: C50.812 Malignant neoplasm of overlapping sites of left female breast (principal); Z17.1 Estrogen receptor negative status [ER-]; Z17.22 Progesterone receptor negative status; Z17.32 Human epidermal growth factor receptor 2 negative status; N64.4 Mastodynia; Z90.12 Acquired absence of left breast and nipple; Z92.3 Personal history of irradiation; Z92.21 Personal history of antineoplastic chemotherapy; R63.4 Abnormal weight loss; Z68.31 Body mass index [BMI] 31.0-31.9, adult; R61 Generalized hyperhidrosis; E11.9 Type 2 diabetes mellitus without complications; I10 Essential (primary) hypertension; M81.0 Age-related osteoporosis without current pathological fracture
CPT/HCPCS: 36591; 80053; 83010; 85025; 99212; A4216; J1642; G0463

== ENCOUNTER 2025-04-23 14:23 | Outpatient (RCR) | payer OTHER, MEDICAID, SELFPAY ==
[2025-04-20 09:41] LABS: Basophils # (Auto) 0.0 Thou/mm3 (0.0-0.2); Basophils % (Auto) 1 % (0-2.5); Eosinophils # (Auto) 0.2 Thou/mm3 (0.0-0.5); Eosinophils % (Auto) 3 % (0-10); Hematocrit 38.2 % (36.0-46.0); Hemoglobin 12.9 g/dL (12.0-16.0); Immature Granulocytes Auto 0.04 Thou/mm3 (0.00-0.00); Immature Reticulocyte Fraction 25.0 % (3.0-15.9); Lymphocytes # (Auto) 1.8 Thou/mm3 (1.0-4.8); Lymphocytes % (Auto) 32 % (10-50); Mean Corpuscular HGB Conc 33.8 g/dl (31.0-37.0); Mean Corpuscular Hemoglobin 31.2 pg (25.0-35.0); Mean Corpuscular Volume 93 fL (80-100); Monocytes # (Auto) 0.4 Thou/mm3 (0.0-0.8); Monocytes % (Auto) 7 % (0-12); Neutrophils # (Auto) 3.1 Thou/mm3 (1.8-7.7); Neutrophils % (Auto) 57 % (37-80); Nucleated Red Blood Cell # 0.00 Thou/mm3 (0.00-0.00); Nucleated Red Blood Cell % 0 /100 WBC (0); Platelet Count 257 Thou/mm3 (140-440); RDW Standard Deviation 40.6 fL (36.4-46.3); Red Blood Count 4.13 Miln/mm3 (4.00-5.20); Reticulocyte % (Auto) 2.1 % (0.5-1.5); Reticulocyte Absolute Auto 85.5 Biln/L (25.0-75.0); Reticulocyte Hgb Content 33.6 pg (28.0-35.0); White Blood Count 5.5 Thou/mm3 (3.6-11.0)
[2025-04-20 10:02] LABS: Alanine Aminotransferase 31 U/L (10-49); Albumin, Serum 4.5 gm/dL (3.4-4.8); Albumin/Globulin Ratio 2.0 (1.2-2.2); Alkaline Phosphatase 55 U/L (46-116); Anion Gap 11 (7-16); Aspartate Amino Transferase 29 U/L (0-34); BUN/Creatinine Ratio 19 Ratio (12-20); Bilirubin,Total 0.6 mg/dL (0.3-1.2); Blood Urea Nitrogen 19 mg/dL (9-23); Calcium 10.0 mg/dL (8.3-10.6); Calcium (Corrected) 10.0 mg/dL (8.5-10.1); Carbon Dioxide 24.4 mMol/L (20.0-31.0); Chloride 106 mMol/L (98-107); Creatinine (Component) 1.0 mg/dL (0.6-1.3); Ferritin 21 ng/mL (7.3-270.7); Globulin 2.3 gm/dL (2.3-3.5); Glucose 240 mg/dL (74-106); Iron 72 mcg/dL (50-170); LDH (Lactate Dehydrogenase) 201 U/L (120-246); Osmolality,Calculated 291 (275-295); Percent Iron Saturation 18 % (20-55); Potassium 4.1 mMol/L (3.4-5.1); Sodium 141 mMol/L (136-145); Total Iron Binding Capacity 393 mcg/dL (250-425); Total Protein 6.8 gm/dL (5.7-8.2); Unsaturated Iron Binding 321 (225-295); eGFR > 60 See Note
[2025-04-20 10:05] LABS: Folate > 24.00 ng/mL (>5.38); Vitamin B12 525 pg/mL (211-911)
[2025-04-26 06:29] LABS: Haptoglobin* 131 mg/dL (43-212)
--- NOTE | 2025-04-29 21:03 | CTCFLWUP_ITS ---
Patient: OUMOU SOLANO : 1960 Page 2 of 2 FOLLOW UP NOTE DATE OF SERVICE: 04/29/2025 NAME: OUMOU SOLANO ACCOUNT: [id number] : 1960 AGE: 64 INTERVAL HISTORY: Oumou Luther, a female with history of breast cancer, presented for routine follow-up reporting occasional fatigue. She completed Herceptin therapy in November 2024. Recent diagnostic tests showed no evidence of cancer recurrence, though a 5mm nodule was noted in left lung and an abnormality in left breast on MRI. A mammogram was scheduled for further evaluation. Iron supplementation was initiated for possible anemia-related fatigue. Bone-strengthening infusions, last received June 2024, will resume following dental clearance for her broken tooth from September 2024. History of Present Illness Oumou Luther is an oncology patient who presents for routine follow-up and reports feeling fine overall. She experiences occasional episodes of fatigue, during which she lies down and subsequently feels better. The patient completed her last treatment in November 2024 and has finished all Herceptin therapy. She was scheduled to receive bone-strengthening infusions but missed her December appointment due to a dental issue - she had a broken tooth that occurred around October 08 or of this year and was advised to wait before receiving the infusion. Her last bone-strengthening infusion was in June 2024, but there appears to have been confusion about her dental clearance at that time, and she may not have actually received the infusion as planned. Medical History - Breast cancer, completed treatment in November 2024 - Broken tooth in September 2024 Medications and Supplements - Herceptin - Last treatment was in November. Treatment course completed. - Bone strengthening infusions - Last received in June 2024. Missed scheduled December infusion due to dental issues requiring tooth treatment. Review of Systems General: Positive for fatigue (reports feeling tired at times, relieved by rest). Objective Laboratory, Imaging, and Diagnostic Test Results - Date: 11/03/2024 - Netera test: Negative - Date: 11/29/2024 - [facility]a test: Negative for cancer - Date: 12/2024 - Echocardiogram: Normal - Date: 02/15/2025 - CT scan: One small 5-millimeter nodule in left upper lobe of lungs, otherwise negative - MRI bilateral breast: Abnormality noted in left breast only ONCOLOGY HISTORY:?CloneBlock Oncology Hx? DIAGNOSIS: Malignant neoplasm of central portion of left female breast [ICD10] C50.112 DATE OF DIAGNOSIS: 06/28/2023 STAGE/TNM: T2 N0 M0 HER2 positive ER/MI negative TREATMENT HISTORY: Zoledronic Acid 4 mg adjuvant 01/04/2024 1 180 Curative (adjuvant) VICTORINO MOREAU 6 VENOfer 200mg IV wkly for 10 weeks 04/23/2025 1 70 Maintenance Sonido Young 1 HISTORY OF PRESENT ILLNESS: Oumou Solano is a 64-year-old SPA speaking female with following oncology history. 05/30/2021: Ms. Solano had bilateral screening mammograms 01/18/2023: Ms. Solano started feeling a lump in the left breast. She had bilateral digital mammograms 01/25/2023: Left breast ultrasound 06/28/2023: Ultrasound-guided left breast biopsy? 08/05/2023: Echocardiogram showed an ejection fraction of 55-60%. 08/12/2023: PET/CT scan 08/18/2023: MRI of the both breast with and without contrast 09/02/2023: CT scan of the abdomen and pelvis with IV contrast was done to evaluate the cause for abdominal pain 09/16/2023: Left breast lumpectomy with sentinel lymph node biopsy? 10/29/2023: Endometrial biopsy negative for malignancy. 11/03/2023: Echo cardiogram showed an ejection fraction of 60-65%. 12/21/2023: Patient received first cycle of TCH chemotherapy in the adjuvant setting. 10/24/2024 IMPRESSION: BI-RADS Category 4: Suspicious for malignancy Recommend ultrasound- guided biopsy of mass in the central to 3:00 position left breast described above to exclude recurrent malignancy Dictated By: Brad Vargas MD Signed By: <Electronically signed by Brad Vargas MD in [facility]> 10/24/24 1648 OTHER MEDICAL HISTORY/CONDITIONS: DIABETES HYPERTENSION LEFT BREAST CANCER CHOLELITHIASIS CHEMO PORT PLACED AUGUST 2023 DR GRANT TUBAL LIGATION LEFT KNEE REPLACEMENT BLADDER SLING PROLAPSE 2ND SURGERY FAMILY HISTORY: Father:?DENIES Mother:?DENIES Sibling:?DENIES Children:?DENIES Cancer?History:?DENIES Patient?denies?family?cancer?history. 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 Aspirin Child - 81 mg Daily 2. atorvastatin - 10 mg Daily 3. Basaglar KwikPen - Twice a Day 4. famotidine - 20 mg Daily 5. gabapentin - 100 mg 1 Capsule Twice a Day 6. lisinopril - 40 mg Daily 7. metFORMIN - 500 mg 1 tab Twice a Day?Palabra Meds? Medications Last Reconciled by Oumou Gillespie MD on 04/23/2025 (Reconcile on Approval: ?) ALLERGIES: No Known Drug Allergies REVIEW OF SYSTEMS: A complete 14-point review of systems was performed and is negative except as noted in interval history. PHYSICAL EXAMINATION:?CloneBlock PE? VITAL SIGNS: PAIN: 0 - No pain ECOG Performance Status: 0 - Asymptomatic and fully active GENERAL APPEARANCE: Appears well, in no apparent distress, appropriately interactive. HEENT: Normocephalic, no temporal wasting, normal conjunctiva, no scleral icterus, normal hearing, lips without lesions, neck normal range of motion. CARDIOVASCULAR: Not assessed. PULMONARY: Normal respiratory effort, no respiratory distress or use of accessory muscles, speaking in full sentences, no tachypnea. EXTREMITIES: No pedal edema or cyanosis. SKIN: Normal skin appearance. NEUROLOGIC: Alert and oriented x4. PSHYCHIATRIC: Appropriate affect, mood normal, behavior normal, intact thought and speech. Physical Examination Breast: Right breast examined. Nipple appears inverted post-surgery. Area in the middle of the breast is thickened. Skin thickening noted. LABORATORY DATA: I have personally reviewed and interpreted each of the patient?s relevant lab tests, abnormal findings are below: Date ASSESSMENT/PLAN:?Ranjit Young Assessment/Plan? #1 stage IIa (pT2, snN0, cM0) ER negative, MI negative, 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 S/p left breast lumpectomy and sentinel lymph node biopsy on 09/16/2023. S/p ultrasound-guided biopsy of the left breast mass (06/28/2023) S/p TCH chemotherapy in the adjuvant setting.. and 1 year of HP pn 11/23/2024 Completed radiation Mri breast completed . it shows architectural distortion for more than 5 cm . Recent diagnostic tests show no evidence of cancer recurrence. A netera test on November 24, 2024 (blood collected on November 03, 2024) was negative. Another netera test with blood collected on November 29, 2024 also showed no cancer. A CT scan on February 15, 2025 revealed a small 5-millimeter nodule in the left upper lobe of the lungs, but was otherwise negative. An echocardiogram in December 2024 was normal. An MRI of the bilateral breasts showed an issue only in the left breast. Plan: - Schedule mammogram for further evaluation of the left breast - No further Herceptin treatments required - No additional echocardiograms needed at this time - Continue current treatment plan - Follow up as scheduled Anemia Assessment: Patient reports occasional fatigue, which may be related to anemia. Iron supplementation is being considered to address this issue. Plan: - Initiate iron supplementation - Monitor for improvement in fatigue symptoms Bone Health Assessment: Patient was scheduled to receive infusions to strengthen bones starting in December, but this was delayed due to a dental issue. The patient had a broken tooth around October 082024, which required treatment. The last bone- strengthening treatment was in March of the previous year. Plan: - Resume bone-strengthening infusions - Patient cleared to proceed with dental treatment for the broken tooth ORDERS: Order # Description [id number] Comprehensive Metabolic Panel - 12 + CBC with Auto Diff [id number] [id number] RETURN TO CLINIC: I reviewed the diagnosis, prognosis, and recommended treatment/procedure options with the patient (and/or their legal signs and displays sales representative), including the potential benefits, risks, side effects and alternative therapies. We also discussed the option of no treatment and the possibility of clinical trial participation, if applicable. All questions were addressed, and they demonstrated understanding. They provided informed consent to proceed with the proposed plan of care. BILLING AND COMPLIANCE: I reviewed external records from providers outside my specialty as summarized above. I spent a total of 50 minutes on this patient?s care on the day of their visit excluding time spent related to any billed procedures. This time includes time spent with the patient as well as time spent documenting in the medical record, reviewing patients records and tests, obtaining history, placing orders, communicating with other healthcare professionals, counseling the patient, family or caregiver, and/or care coordination for the diagnoses above. Electronically Signed by: Sonido Young MD T: 8:59 PM CC: PCP: Serina Adrian Referring: Serina Adrian This document was completed utilizing speech recognition software. Grammatical errors, random word insertions, pronoun errors, and incomplete sentences are an occasional consequence of this system due to software limitations, ambient noise, and hardware issues. Any formal questions or concerns about the content, text or information contained within the body of this dictation should be directly addressed to the provider for clarification.
== END 2025-04-24 23:59 | disposition home or self-care (01) ==
LOC: SCTC 14:23
PROVIDERS: PCP Nurse Practitioner Family; Referring Provider Nurse Practitioner Family; Visit Provider Internal Medicine Hematology & Oncology
DX: Z08 Encounter for follow-up examination after completed treatment for malignant neoplasm (principal); Z85.3 Personal history of malignant neoplasm of breast; Z90.12 Acquired absence of left breast and nipple; Z92.21 Personal history of antineoplastic chemotherapy; Z92.3 Personal history of irradiation; R91.1 Solitary pulmonary nodule; R92.8 Other abnormal and inconclusive findings on diagnostic imaging of breast; D64.9 Anemia, unspecified
CPT/HCPCS: 36591; 80053; 82607; 82728; 82746; 83010; 83540; 83550; 83615; 85025; 85046; 99212; A4216; J1642; G0463

== ENCOUNTER 2025-05-08 11:03 | Emergency (ER) | payer OTHER, MEDICAID, SELFPAY ==
[2025-05-08 11:11] VITALS: BP 134/85; PULSE 99; RESP 16; TEMP 38.1; O2SAT 95; BMI 29.2
--- NOTE | 2025-05-08 11:22 | XR_ITS ---
EXAMINATION: PA lateral chest 2 views TECHNIQUE: Upright PA and lateral chest 2 views Date and time: May 08, 2025, 1137 hours, comparison December 17, 2023 INDICATIONS: Cough and fever beginning 2 days ago. FINDINGS: Normal heart size No pneumonia or pulmonary edema. Left axillary surgical clips. Right subclavian Port-A-Cath tip SVC IMPRESSION: No interval pneumonia or pulmonary edema
--- NOTE | 2025-05-08 11:22 | PD.EDURI ---
Upper Respiratory Inf. RME/HPI General Chief Complaint: Back Pain/Injury Stated Complaint: BACK/CHEST PAIN, COUGH, HEADACHE Time Seen by Provider: 05/08/25 11:09 Source: patient Arrival date/time: 05/08/25 11:03 64-year-old female with a history of type 2 diabetes, hypertension presents to the emergency room with a chief complaint of back pain, body aches, cough, congestion, fevers x 2 days Mode of arrival: ambulatory Limitations: no limitations Related Data Home Medications ?Medication ?Instructions ?Recorded ?Confirmed famotidine 20 mg tablet (Pepcid) 20 mg PO QDAY #0 tabs 03/05/17 06/26/24 sitagliptin phosphate 100 mg 100 mg PO QDAY #0 tabs 03/05/17 06/26/24 tablet (Januvia) aspirin 81 mg tablet,delayed 1 tab PO QDAY 10/05/18 06/26/24 release (Aspir-) Held on 06/27/24. Instructions: Resume on 06/29/24. resume aspirin on ergocalciferol (vitamin D2) 1,250 1,250 mcg PO QWEEK 09/15/23 06/26/24 mcg (50,000 unit) capsule (Vitamin D2) lisinopril 40 mg tablet 40 mg PO QDAY 09/15/23 06/26/24 metformin 500 mg tablet 500 mg PO BIDWMEAL 09/15/23 06/26/24 Allergies Allergy/AdvReac Type Severity Reaction Status Date / Time No Known Allergies Allergy Verified 12/17/23 10:00 Review of Systems Review of Systems Systems Reviewed: All systems reviewed, normal except as documented Constitutional Constitutional: Reports system reviewed and no additional complaints, except as documented, Reports body ache(s), Reports chills, Denies fatigue, Reports fever(s), Reports headache(s) and Reports weakness Eyes Eyes: Reports system reviewed and no additional complaints, except as documented, Denies blurry vision and Denies change in vision ENT Ears, Nose, Mouth, and Throat: Reports system reviewed and no additional complaints, except as documented, Denies otalgia, Reports headache(s), Denies nasal congestion, Denies throat swelling and Denies vertigo Cardiovascular Cardiovascular: Reports system reviewed and no additional complaints, except as documented, Denies chest pain, Reports dyspnea and Denies dyspnea on exertion Respiratory Respiratory: Reports system reviewed and no additional complaints, except as documented, Reports chest congestion, Reports cough, Reports dyspnea, Denies dyspnea on exertion and Denies wheezing Gastrointestinal Gastrointestinal: Reports system reviewed and no additional complaints, except as documented, Denies abdominal pain, Denies cramping, Denies nausea and Denies vomiting Genitourinary Genitourinary: Reports system reviewed and no additional complaints, except as documented Musculoskeletal Musculoskeletal: Reports system reviewed and no additional complaints, except as documented and Denies back pain Integumentary/Breasts Skin/Breast: Reports system reviewed and no additional complaints, except as documented and Denies wounds Neurologic Neurologic: Reports system reviewed and no additional complaints, except as documented, Denies confusion, Reports headache(s), Denies lack of coordination, Denies vertigo and Reports weakness Psychiatric Psychiatric: Reports system reviewed and no additional complaints, except as documented, Denies anxiety, Denies confusion, Denies depression, Denies paranoia, Denies suicidal ideation and Denies tactile hallucinations Endocrine Endocrine: Reports system reviewed and no additional complaints, except as documented and Denies fatigue Hematologic/Lymphatic Hematologic/Lymphatic: Reports system reviewed and no additional complaints, except as documented and Denies lymphadenopathy Allergic/Immunologic Allergic/Immunologic: Reports system reviewed and no additional complaints, except as documented, Denies throat swelling, Denies urticaria and Denies wheezing ED Exam General Limitations: Present no limitations General appearance: Present alert and in no apparent distress Head Head exam: Present atraumatic Eye Eye exam: Present normal appearance, PERRL and EOMI ENT ENT exam: Present normal exam, normal oropharynx and mucous membranes moist Neck Neck exam: Present normal inspection, full ROM and trachea midline Chest Chest inspection: Present normal inspection and symmetric chest wall rise Respiratory Respiratory exam: Present normal lung sounds bilaterally; Absent respiratory distress, wheezes, stridor, accessory muscle use or prolonged expiratory phase Cardiovascular Cardiovascular exam: Present regular rate, normal rhythm, normal heart sounds, +S1 and +S2; Absent tachycardia Abdominal Exam Abdominal exam: Present soft and normal bowel sounds; Absent tenderness Extremities Exam Extremities exam: Present normal inspection and full ROM Back Exam Back exam: Present normal inspection and full ROM Neurological Exam Neurological exam: Present alert, oriented X3 and CN II-XII intact Psychiatric Psychiatric exam: Present normal affect and normal mood Skin Skin exam: Present warm, dry, intact and normal color Course Quality Measures none Orders Category Date Time Status Bedside COVID-19 Antigen Test NOW Care 05/08/25 11:22 Completed XR chest 2V Stat Exams 05/08/25 11:22 Completed Influenza A & B Rapid Panel Stat Lab 05/08/25 11:29 Completed Acetaminophen Tab [Tylenol ES Tab] Med 05/08/25 11:22 Discontinued 1,000 mg PO X1 ONE Vital Signs Vital signs: Vital Signs Temperature 100.5 F H 05/08/25 11:11 Pulse Rate 99 05/08/25 11:11 Respiratory Rate 16 05/08/25 11:11 Blood Pressure 134/85 H 05/08/25 11:11 Pulse Oximetry (%) 95 05/08/25 11:11 Oxygen Delivery Method Room Air 05/08/25 11:11 Upper Respiratory Infection MDM Narrative MDM Narrative:: 64-year-old female with a history of type 2 diabetes, hypertension presents to the emergency room with a chief complaint of back pain, body aches, cough, congestion, fevers x 2 days Patient is hemodynamically stable and in no apparent distress. Patient has a mild fever at 100.5. Antipyretics were given with improvement to her symptoms. Physical examination shows clear bilateral lung sounds there is no wheezing or any abnormal breath sounds. COVID-19 and influenza test were completed and the patient tested positive for influenza A Chest x-ray was negative for any pneumonic infiltrates Patient was discharged and educated to follow-up with primary care provider in the next 24 to 48 hours and return to the emergency room for any evidence of worsening signs or symptoms Patient data External records reviewed:: [facility] previous records Clinical information provided by:: patient Social determinants that could affect healthcare access:: none Patient has the following chronic illnesses:: No chronic illness How is presenting disease/condition affected by chronic disease/condition?: no chronic disease Evaluation data The following diagnostics were reviewed and interpreted by me:: lab results and radiology exam(s) Lab and/or radiology exams considered but not ordered:: Labs and radiology exams considered and ordered Interpretation Summary: Chest x-ray-no pneumonic infiltrates Medications / Prescriptions Medications or Prescriptions considered but not ordered:: Medication given Medication administrations:: Medication Administration History Discontinued Medications Acetaminophen (Acetaminophen 500 Mg Tablet) 1,000 mg PO X1 ONE Stop: 05/08/25 11:23 Last Admin: 05/08/25 11:28 Dose: 1,000 mg Documented By: KM Medication given Consultations Consultation(s) initiated? (list below): No Diagnosis Upper Respiratory Differential Diagnosis: upper respiratory infection, viral infection, influenza and other (Community-acquired pneumonia) Most likely diagnosis given after review of the tests above:: Influenza A Admission Indicated Admission indicated?: not indicated Admission Request Was there a request for admission?: No Disposition Plan Disposition Plan: Discharge Discharge Attestation Discharge Attestation: The patient and all family members were given an opportunity to ask questions and understood the discharge instructions. Discharge instructions specifically effects, indications for sooner follow up or return to the emergency department, and the expected course of current diagnosis. Patient condition: Stable Discharge Plan Plan Patient Disposition: HOME (Self Care) Discharge Disposition comment: Stable Prescriptions/Referrals Prescriptions/Med Rec: No Action famotidine [Pepcid] 20 MG tablet 20 mg PO QDAY Qty: 0 Patient Comments: TO SUPPRESS GASTRIC ACID SECRETION Januvia 100 MG tablet 100 mg PO QDAY Qty: 0 aspirin [Aspir-81] 81 mg Tablet,Delayed Release (Dr/Ec) 1 tab PO QDAY metformin 500 mg Tablet 500 mg PO BIDWMEAL ergocalciferol (vitamin D2) [Vitamin D2] 1,250 mcg (50,000 unit) Capsule 1,250 mcg PO QWEEK lisinopril 40 mg Tablet 40 mg PO QDAY Referrals: Serina Adrian NP [Primary Care Provider] - In 1 week Problem List Clinical Impression: Influenza A Patient/Caregiver Discharge Instructions Education Materials: ED Influenza (Adult) Additional Instructions: Por favor, consulte con castaneda m?dico de cabecera en las pr?ximas 24 a 48 horas. Castaneda prueba de influenza michael positivo. El tratamiento es el control de los s?ntomas. Contin?e tomando Tylenol e ibuprofeno para controlar la fiebre. Aumente castaneda consumo de l?quidos por v?a oral. Ante cualquier signo de empeoramiento de los signos o s?ntomas, acuda a urgencias de inmediato. Print Language: Lithuanian Stand Alone Forms: Sandhya Award Info., Work/School Release, Patient Portal Info Letter PA/FLYING II INSTRUCTOR Supervising Physician PA/FLYING II INSTRUCTOR Supervising Physician: Dr. Yee
[2025-05-08 11:28] VITALS: TEMP 38.1
[2025-05-08] MEDS: ACETAMINOPHEN 500 MG TABLET 1000 MG PO (11:28)
[2025-05-08 12:30] LABS: Influenza A Ag Positive; Influenza B Ag Negative
[2025-05-08 12:35] VITALS: TEMP 36.8
[2025-05-08 13:24] VITALS: BP 130/80; PULSE 90; RESP 16; TEMP 36.8; O2SAT 95
== END 2025-05-08 13:25 | disposition home or self-care (01) ==
PROVIDERS: Emergency Provider Nurse Practitioner Family; PCP Nurse Practitioner Family
DX: J10.1 Influenza due to other identified influenza virus with other respiratory manifestations (principal); E11.9 Type 2 diabetes mellitus without complications; I10 Essential (primary) hypertension
CPT/HCPCS: 71046; 87502; 87811; 99283; A9270

== ENCOUNTER → 2025-05-15 | Outpatient (CLI) | payer OTHER, MEDICAID, SELFPAY ==
--- NOTE | 2025-05-15 10:30 | ECHO_ITS ---
Transthoracic Echo Report Ht (in): 62 Wt (lb): 169 Exam Location: Echo Lab Status: Preadmit Order Takers Supervisor: Nancy Culp Indications: Procedure Performed: BP: / HR: Technical Quality: Technically difficult study MEASUREMENTS (Male / Female) Normal Values 2D ECHO LV Diastolic Diameter PLAX 3.5 cm 4.2 - 5.9 / 3.9 - 5.3 cm LV Systolic Diameter PLAX 2.6 cm IVS Diastolic Thickness 1.3 cm 0.6 - 1.0 / 0.6 - 0.9 cm LVPW Diastolic Thickness 1.2 cm 0.6 - 1.0 / 0.6 - 0.9 cm LV Relative Wall Thickness 0.7 LVOT Diameter 2.1 cm Aortic Root Diameter 2.8 cm LA Systolic Diameter LX 3.2 cm 3.0 - 4.0 / 2.7 - 3.8 cm LV Ejection Fraction MOD BP 62.3 % >= 55 % LV Ejection Fraction MOD 4C 64.5 % LV Ejection Fraction 4C AL 65.4 % LV Ejection Fraction MOD 2C 57.2 % LV Ejection Fraction 2C AL 55.9 % LA Volume Index 19.9 cm?/m? 16 - 28 cm?/m? Ascending Aorta Diameter 3.1 cm M-MODE Aortic Root Diameter MM 2.6 cm LA Systolic Diameter MM 3.3 cm LA Ao Ratio MM 1.3 AV Cusp Separation MM 1.4 cm DOPPLER AV Peak Velocity 194.0 cm/s AV Peak Gradient 15.1 mmHg AV Mean Gradient 8.0 mmHg AV Velocity Time Integral 43.0 cm AI Peak Velocity 390.0 cm/s AI Peak Gradient 60.8 mmHg AI Pressure Half Time 878.0 ms LVOT Peak Velocity 95.3 cm/s LVOT Peak Gradient 3.6 mmHg LVOT Velocity Time Integral 22.7 cm AV Area Cont Eq vti 1.8 cm? AV Area Cont Eq pk 1.7 cm? MV Area PHT 3.9 cm? Mitral E Point Velocity 82.9 cm/s Mitral A Point Velocity 91.2 cm/s Mitral E to A Ratio 0.9 LV E' Lateral Velocity 7.4 cm/s Mitral E to LV E' Lateral Ratio 11.2 LV E' Septal Velocity 4.6 cm/s Mitral E to LV E' Septal Ratio 18.1 PV Peak Velocity 85.5 cm/s PV Peak Gradient 2.9 mmHg FINDINGS Left Ventricle Normal left ventricular size and systolic function with no obvious regional wall motion abnormalities. Mild LVH.there is grade I diastolic dysfunction of the left ventricle (impaired relaxation pattern). The ejection fraction is visually estimated at 55-60 %. Right Ventricle The right ventricular size is mildy increased with normal systolic function. Left Atrium The left atrium is normal by two-dimensional, color flow and Doppler imaging with no structural abnormalities, no thrombus formation present. Right Atrium The right atrium is normal by two-dimensional imaging, color flow and Doppler imaging with no structural abnormalities, no thrombus formation present. Atrial Septum The interatrial septum appears normal with no evidence of a shunt. Aorta The aorta is normal by two-dimensional, color flow and Doppler interrogation. Mitral Valve The mitral valve is normal by two-dimensional, color flow and Doppler interrogation. There is no significant mitral valve regurgitation, stenosis or prolapse. Aortic Valve The aortic valve is trileaflet and normal by two-dimensional, color flow and Doppler interrogation. [id number] aortic valve regurgitation. Tricuspid Valve The tricuspid valve is normal by two-dimensional, color flow and Doppler interrogation. There is trace tricuspid valve regurgitation. Vessels The pulmonary artery appears normal. The inferior vena cava pulmonary and hepatic veins appear normal. Pericardium The pericardium is normal by two-dimensional imaging. There is no significant pericardial effusion. CONCLUSIONS Indication: Malignant neoplasm of unspecified site of left female breast Normal LV size. Mild LVH. There is grade I diastolic dysfunction. Estimated EF at 55-60 %. The RV size is mildy increased with normal systolic function. Moderate aortic vakve sclerosis without stenosis. mild AI. Trace TR. No pericardial effusion. Lavell Thompson (Electronically Signed) Final Date: 15 May 2025 15:05
== END | disposition home or self-care (01) ==
LOC: SDIM 10:07
PROVIDERS: PCP Nurse Practitioner Family; Referring Provider Internal Medicine Hematology & Oncology; Visit Provider Internal Medicine Hematology & Oncology
DX: I08.2 Rheumatic disorders of both aortic and tricuspid valves (principal); I50.30 Unspecified diastolic (congestive) heart failure; C50.912 Malignant neoplasm of unspecified site of left female breast
CPT/HCPCS: 93306

== ENCOUNTER → 2025-05-17 | Outpatient (CLI) | payer OTHER, MEDICAID, SELFPAY ==
--- NOTE | 2025-05-17 13:45 | XR_ITS ---
Examination: Diagnostic digital mammography, unilateral, left Computer aided detection 3-D breast Tomosynthesis, unilateral Date and time of exam: May 17, 2025, 1327 hours Compared to mammograms dating to 04/15/2020 INDICATIONS: Screening, diagnosis malignant neoplasm left female breast Technique: Nonmagnified MLO, CC views of the left breast have been obtained, reconstructed from 3-D Tomosynthesis images. R2 computer aided detection program utilized for evaluation of suspicious masses and/or abnormal calcifications. 3-D Tomosynthesis images obtained. Findings: Scattered areas of fibroglandular density. Stable extensive scar formation left breast No multiple suspicious masses Impression: BI-RADS category 0: Incomplete: Need additional imaging evaluation Given the patient's history, recommend baseline left breast sonography follow-up
== END | disposition home or self-care (01) ==
LOC: CDIM 13:11
PROVIDERS: PCP Nurse Practitioner Family; Referring Provider Internal Medicine Hematology & Oncology; Visit Provider Internal Medicine Hematology & Oncology
DX: R92.8 Other abnormal and inconclusive findings on diagnostic imaging of breast (principal); C50.912 Malignant neoplasm of unspecified site of left female breast
CPT/HCPCS: 77061; 77065; G0279

== ENCOUNTER 2025-06-25 11:28 | Emergency (ER) | payer OTHER, MEDICAID, SELFPAY ==
[2025-06-25 11:29] VITALS: BMI 28.7
[2025-06-25 11:54] VITALS: BP 131/84; PULSE 93; RESP 18; TEMP 36.9; O2SAT 96
--- NOTE | 2025-06-25 12:03 | PD.EDRME ---
Rapid Medical Screening Exam RME Arrival date/time: 06/25/25 11:28 64-year-old female with a history of type 2 diabetes, hypertension, breast cancer, was sent to the emergency room by the cancer treatment center for a blood sugar over 400 I have greeted and performed a focused initial assessment of this patient. A comprehensive ED assessment and evaluation of the patient, analysis of all test results, and completion of the medical decision making process will be conducted by additional ED providers. Chief Complaint: Recheck/Abnormal Lab/Rx Time Seen by Provider: 06/25/25 11:46 Vital signs: Vital Signs Temperature 98.5 F 06/25/25 11:54 Pulse Rate 93 06/25/25 11:54 Respiratory Rate 18 06/25/25 11:54 Blood Pressure 131/84 H 06/25/25 11:54 Pulse Oximetry (%) 96 06/25/25 11:54 Oxygen Delivery Method Room Air 06/25/25 11:54 Vital signs reviewed by provider: Yes Exam: Clear bilateral lung sounds GCS of 15 Clinical Impression: Hyperglycemia
[2025-06-25 13:11] LABS: Collection Type, Urine Clean Catch
[2025-06-25 13:12] LABS: Basophils # (Auto) 0.1 Thou/mm3 (0.0-0.2); Basophils % (Auto) 1 % (0-2.5); Beta Hydroxybutyrate 0.2 mmol/L (<0.6); Eosinophils # (Auto) 0.2 Thou/mm3 (0.0-0.5); Eosinophils % (Auto) 2 % (0-10); Hematocrit 42.0 % (36.0-46.0); Hemoglobin 13.8 g/dL (12.0-16.0); Immature Granulocytes Auto 0.03 Thou/mm3 (0.00-0.00); Lymphocytes # (Auto) 2.2 Thou/mm3 (1.0-4.8); Lymphocytes % (Auto) 28 % (10-50); Mean Corpuscular HGB Conc 32.9 g/dl (31.0-37.0); Mean Corpuscular Hemoglobin 30.3 pg (25.0-35.0); Mean Corpuscular Volume 92 fL (80-100); Monocytes # (Auto) 0.4 Thou/mm3 (0.0-0.8); Monocytes % (Auto) 6 % (0-12); Neutrophils # (Auto) 5.0 Thou/mm3 (1.8-7.7); Neutrophils % (Auto) 64 % (37-80); Nucleated Red Blood Cell # 0.00 Thou/mm3 (0.00-0.00); Nucleated Red Blood Cell % 0 /100 WBC (0); Platelet Count 281 Thou/mm3 (140-440); RDW Standard Deviation 41.2 fL (36.4-46.3); Red Blood Count 4.55 Miln/mm3 (4.00-5.20); White Blood Count 7.8 Thou/mm3 (3.6-11.0)
[2025-06-25 13:33] LABS: Alanine Aminotransferase 30 U/L (10-49); Albumin, Serum 5.2 gm/dL (3.4-4.8); Albumin/Globulin Ratio 1.9 (1.2-2.2); Alkaline Phosphatase 66 U/L (46-116); Anion Gap 10 (7-16); Aspartate Amino Transferase 29 U/L (0-34); BUN/Creatinine Ratio 14 Ratio (12-20); Bilirubin,Total 0.6 mg/dL (0.3-1.2); Blood Urea Nitrogen 14 mg/dL (9-23); Calcium 10.4 mg/dL (8.3-10.6); Calcium (Corrected) 10.4 mg/dL (8.5-10.1); Carbon Dioxide 24.4 mMol/L (20.0-31.0); Chloride 104 mMol/L (98-107); Creatinine (Component) 1.0 mg/dL (0.6-1.3); Estimated Creatinine Clearance 51.1 mL/min (>60); Globulin 2.8 gm/dL (2.3-3.5); Glucose 344 mg/dL (74-106); Lipase 45 U/L (12-53); Osmolality,Calculated 290 (275-295); Potassium 4.4 mMol/L (3.4-5.1); Sodium 138 mMol/L (136-145); Total Protein 8.0 gm/dL (5.7-8.2); eGFR > 60 See Note
[2025-06-25 13:50] LABS: Bilirubin,Urine Negative (Negative); Blood,Urine Negative (Negative); Clarity,Urine Clear (Clear/Hazy); Color,Urine Colorless (Lt Yel-Yel); Glucose, Urine 4+ (Negative); Ketones,Urine Negative (Negative); Leukocyte Esterase,Urine Negative (Negative); Nitrite,Urine Negative (Negative); PH,Urine 6.0 (5.0-7.0); Protein,Urine Negative (Neg - Trace); RBC,Urine 2 /hpf (0-3); Specific Gravity,Urine 1.029 (1.001-1.035); Squamous Epithelial Cell,Urine < 1 /hpf (0-5); Urobilinogen,Urine Negative mg/dL (0.0-1.0); WBC,Urine 4 /hpf (0-5)
[2025-06-25 17:47] VITALS: BP 130/82; PULSE 97; RESP 18; TEMP 36.6; O2SAT 96
--- NOTE | 2025-06-25 17:47 | EDNOTE_ITS ---
<Statement entered by Laura Centeno MD - 06/25/25 18:18> As co-signing physician, I was present and available for consult prn. I concur with the plan and care as documented by the midlevel provider. ED General RME/HPI General Chief complaint: Recheck/Abnormal Lab/Rx Stated complaint: high bs Time Seen by Provider: 06/25/25 11:46 Arrival date/time: 06/25/25 11:28 CC: Elevated blood glucose level HPI patient presents to the ER after being referred over by the cancer treatment [facility] for blood sugars greater than 400. The patient denies any thirst excessive urination nausea vomiting chest pain shortness of breath or difficulty breathing. Patient states that she has no symptoms. RME / HPI RME / HPI narrative: 06/25/25 11:28 64-year-old female with a history of type 2 diabetes, hypertension, breast ca ncer, was sent to the emergency room by the cancer [facility] for a blood sugar over 400 I have greeted and performed a focused initial assessment of this patient. A comprehensive ED assessment and evaluation of the patient, analysis of all test results, and completion of the medical decision making process will be conducted by additional ED providers. Exam: Clear bilateral lung sounds GCS of 15 Impression: Hyperglycemia Related Data Home Medications ?Medication ?Instructions ?Recorded ?Confirmed famotidine 20 mg tablet (Pepcid) 20 mg PO QDAY #0 tabs 03/05/17 06/26/24 sitagliptin phosphate 100 mg 100 mg PO QDAY #0 tabs 06/26/24 tablet (Januvia) aspirin 81 mg tablet,delayed 1 tab PO QDAY 10/05/18 release (Aspir-) Held on 06/27/24. Instructions: Resume on 06/29/24. resume aspirin on ergocalciferol (vitamin D2) 1,250 1,250 mcg PO QWEEK 0 09/15/23 06/26/24 mcg (50,000 unit) capsule (Vitamin D2) lisinopril 40 mg tablet 40 mg PO QDAY 09/15/2306/26 metformin 500 mg tablet 500 mg PO BIDWMEAL 09/15/23 06/26/24 Allergies Allergy/AdvReac Type Severity Reaction Status Date / Time No Known Allergies Allergy Verified 06/25/25 11:31 Review of Systems Review of Systems Narrative Review of Systems: GEN: No fever, no chills, no weight loss EYES: No discharge, no visual changes, no pain HEENT: No ear pain, no congestion, no sore throat PULM: No shortness of breath, no cough, no congestion CV: No chest pain, no dyspnea on exertion, no palpitations GI: No nausea, no vomiting, no diarrhea, no pain, no constipation : No frequency, no urgency, no dysuria MUSC/SKEL: No joint pain, no back pain SKIN: No rash PSYCH: No hallucinations, no depression HEME/LYMPH: No easy bleeding or bruising tendencies NEURO: No weakness, no headache Past Medical History Past Medical History NEUROLOGIC: Negative Neurological Disorders or Seizures CARDIAC: Positive Hypercholesterolemia, Edema and Hypertension; Negative Cardiac Disorders or Congestive Heart Failure RESPIRATORY: Negative Chronic Obstructive Pulmonary Disease (COPD) or Asthma GASTROINTESTINAL: Positive Gastrointestinal Disorders (constipation from chemo), Gall Bladder Disease, Gastroesophageal Reflux Disease and Obesity GENITOURINARY: Negative Genitourinary Disorders or Renal Disease REPRODUCTIVE: Positive Breast Cancer (Left) and Previous Pregnancies MUSCULOSKELETAL: Positive Musculoskeletal Disorders (bone pain from chemo) and Arthritis (in hands) ENDOCRINE: Positive Endocrine Disorders and Diabetes Mellitus Type 2; Negative Diabetes Mellitus Type 1 HEMATOLOGIC: Negative Blood Disorders, Anemia or Sickle Cell Disease OTHER HISTORY: Positive Hospitalization (surgery), Chicken Pox, Measles, Cancer and Breast Cancer (Left); Negative Autoimmune Disease, Shingles, Blood Transfusions, Blood Transfusion Reaction or Anesthesia Reactions Family History FAMILY HISTORY: Positive Family Cardiac Disorders; Negative Family Psychiatric Problems, Family Respiratory Disorders, Family Gastrointestinal Problems, Family Cancer, Family Surgery or Family Anesthesia Reaction Surgical History SURGICAL: Positive Lumpectomy (Left) and Tubal Ligation Social History SMOKING STATUS: Never smoker ED Exam Narrative Physical exam: [General: Not in any acute distress Head normocephalic HEENT: Within acceptable limits Neck is supple nontender Chest equal chest rise nontender to palpation Respiratory: Clear to auscultation no wheezes crackles or rubs CV: Rate rhythm is regular no murmurs rubs or clicks Abdomen is distended secondary to body habitus soft nontender no masses positive bowel sounds all 4 quadrants Back: No CVA tenderness no spinous process tenderness from cervical spine thoracic and lumbar spine Skin: Intact no petechiae rash induration ulceration or crepitus Extremities: Moving all extremity against resistance cap refill less than 2 seconds neurosensory intact Neuro: Awake alert oriented x3 Glascow coma 15 no focal deficits] Course Course Course Narrative: Patient is not in DKA will discharge the patient home after 5 units of insulin subcu to follow-up with her primary care doctor. Quality Measures none Orders Category Date Time Status Beta Hydroxybutyrate Stat Lab 06/25/25 12:44 Completed CBC Stat Lab 06/25/25 12:44 Completed CMP [Comprehensive Metabolic Panel] Stat Lab 06/25/25 12:44 Completed Lipase Stat Lab 06/25/25 12:44 Completed UA [Urinalysis] Stat Lab 06/25/25 12:55 Completed Urine Culture Stat Lab 06/25/25 13:07 Received Vital Signs Vital signs: Vital Signs Temperature 98.5 F 06/25/25 11:54 Pulse Rate 93 06/25/25 11:54 Respiratory Rate 18 06/25/25 11:54 Blood Pressure 131/84 H 06/25/25 11:54 Pulse Oximetry (%) 96 06/25/25 11:54 Oxygen Delivery Method Room Air 06/25/25 11:54 Discharge Plan Plan Patient Disposition: HOME (Self Care) Patient condition on transfer: Stable Prescriptions/Referrals Prescriptions/Med Rec: No Action famotidine [Pepcid] 20 MG tablet 20 mg PO QDAY Qty: 0 Patient Comments: TO SUPPRESS GASTRIC ACID SECRETION Januvia 100 MG tablet 100 mg PO QDAY Qty: 0 aspirin [Aspir-81] 81 mg Tablet,Delayed Release (Dr/Ec) 1 tab PO QDAY metformin 500 mg Tablet 500 mg PO BIDWMEAL ergocalciferol (vitamin D2) [Vitamin D2] 1,250 mcg (50,000 unit) Capsule 1,250 mcg PO QWEEK lisinopril 40 mg Tablet 40 mg PO QDAY Referrals: Serina Adrian NP [Primary Care Provider] - In 1 week Problem List Clinical Impression: Hyperglycemia due to diabetes mellitus Patient/Caregiver Discharge Instructions Education Materials: Glucose Check Steps Additional Instructions: Follow-up with the cancer treatment center follow-up with your primary care doctor you need better management of your diabetes. Print Language: Zimbabwean Stand Alone Forms: Sandhya Award Info., Work/School Release, Patient Portal Info Letter PA/STORE SHOPPER Supervising Physician PA/STORE SHOPPER Supervising Physician: Wolf Perez ENP MDM Clinical Information Provided by: patient Medical Records reviewed [facility] Meds/Rx considered, not ordered None Labs/Rad/Tests considered, not ordered None Chronic Illness/Social Conditions Explain: Diabetes cancer EKG EKG not done Labs Labs: interpreted by oh Lab(s) Interpretation(s): CBC shows no acute leukocytosis anemia thrombocytopenia CMP shows no significant electrolyte imbalances no anion gap. Glucose of 344 no T. bili or transaminitis. Lipase 45 Hide beta hydroxy at 0.2. Urine is 4+ glucose no other indication of UTI. Imaging Imaging interpretation: none Medication Administration(s) none Diagnosis Differential Diagnosis ED Complaint MDM: DKA hyperglycemia electrolyte imbalance
[2025-06-25] MEDS: INSULIN HUM REGULAR 1 UNIT/0.01 ML (PER UNIT) 5 UNIT SC (18:30)
== END 2025-06-25 19:25 | disposition home or self-care (01) ==
PROVIDERS: Nurse Practitioner Family; Emergency Provider Emergency Medicine; PCP Nurse Practitioner Family
DX: E11.65 Type 2 diabetes mellitus with hyperglycemia (principal); Z79.84 Long term (current) use of oral hypoglycemic drugs
CPT/HCPCS: 36415; 80053; 81001; 82010; 83690; 85025; 87077; 87086; 87186; 99283; J1815

== ENCOUNTER → 2025-06-27 | Outpatient (CLI) | payer MEDICARE, MEDICAID, SELFPAY ==
[2025-06-27 13:48] LABS: Glucose Estimated Average 252 mg/dL (80-131); Hemoglobin A1C 10.4 % Hgb (4.8-6.0)
[2025-06-27 13:49] LABS: Creatinine MALB Rnd Ur 25 mg/dL (30-125); Microalbumin Creat Ratio 12 mg/gCrea (<30); Microalbumin, Random Urine 3 mg/L (0-300)
== END | disposition home or self-care (01) ==
PROVIDERS: PCP Physician Assistant; Referring Provider Physician Assistant; Visit Provider Physician Assistant
DX: E11.65 Type 2 diabetes mellitus with hyperglycemia (principal)
CPT/HCPCS: 36415; 82043; 82570; 83036

== ENCOUNTER → 2025-07-05 | Outpatient (CLI) | payer OTHER, MEDICAID, SELFPAY ==
--- NOTE | 2025-07-05 14:00 | XR_ITS ---
Examination: Breast ultrasound, unilateral, left Date and time of exam: July 05, 2025, 1332 hours INDICATIONS: Diagnosis malignant left breast mass post removal August 2023, chemotherapy radiation therapy, extensive scar formation on mammogram May 17, 2025 left breast Technique: Real-time sow scale ultrasonographic imaging performed left breast including all 4 quadrants as well as nipple retroareolar and axillary region. Findings: Scar formation nipple 2 to 3 o'clock position left breast measuring 6.6 cm in dimension IMPRESSION: BI-RADS Category 3: Probably benign findings 3-month left breast sonogram follow-up strongly recommended to document stability of extensive scar formation described above
== END | disposition home or self-care (01) ==
PROVIDERS: PCP Physician Assistant; Referring Provider Internal Medicine Hematology & Oncology; Visit Provider Internal Medicine Hematology & Oncology
DX: R92.8 Other abnormal and inconclusive findings on diagnostic imaging of breast (principal); C50.912 Malignant neoplasm of unspecified site of left female breast; C50.112 Malignant neoplasm of central portion of left female breast
CPT/HCPCS: 76641

== ENCOUNTER 2025-07-24 12:53 | Outpatient (RCR) | payer OTHER, MEDICAID, SELFPAY ==
[2025-06-25 10:10] LABS: Basophils # (Auto) 0.1 Thou/mm3 (0.0-0.2); Basophils % (Auto) 1 % (0-2.5); Eosinophils # (Auto) 0.2 Thou/mm3 (0.0-0.5); Eosinophils % (Auto) 3 % (0-10); Hematocrit 38.6 % (36.0-46.0); Hemoglobin 13.0 g/dL (12.0-16.0); Immature Granulocytes Auto 0.02 Thou/mm3 (0.00-0.00); Lymphocytes # (Auto) 1.7 Thou/mm3 (1.0-4.8); Lymphocytes % (Auto) 25 % (10-50); Mean Corpuscular HGB Conc 33.7 g/dl (31.0-37.0); Mean Corpuscular Hemoglobin 30.6 pg (25.0-35.0); Mean Corpuscular Volume 91 fL (80-100); Monocytes # (Auto) 0.4 Thou/mm3 (0.0-0.8); Monocytes % (Auto) 6 % (0-12); Neutrophils # (Auto) 4.4 Thou/mm3 (1.8-7.7); Neutrophils % (Auto) 65 % (37-80); Nucleated Red Blood Cell # 0.00 Thou/mm3 (0.00-0.00); Nucleated Red Blood Cell % 0 /100 WBC (0); Platelet Count 275 Thou/mm3 (140-440); RDW Standard Deviation 40.5 fL (36.4-46.3); Red Blood Count 4.25 Miln/mm3 (4.00-5.20); White Blood Count 6.8 Thou/mm3 (3.6-11.0)
[2025-06-25 10:31] LABS: Alanine Aminotransferase 17 U/L (10-49); Albumin, Serum 4.7 gm/dL (3.4-4.8); Albumin/Globulin Ratio 1.8 (1.2-2.2); Alkaline Phosphatase 63 U/L (46-116); Anion Gap 13 (7-16); Aspartate Amino Transferase 24 U/L (0-34); BUN/Creatinine Ratio 17 Ratio (12-20); Bilirubin,Total 0.7 mg/dL (0.3-1.2); Blood Urea Nitrogen 15 mg/dL (9-23); Calcium 9.9 mg/dL (8.3-10.6); Calcium (Corrected) 9.9 mg/dL (8.5-10.1); Carbon Dioxide 22.8 mMol/L (20.0-31.0); Chloride 102 mMol/L (98-107); Creatinine (Component) 0.9 mg/dL (0.6-1.3); Globulin 2.6 gm/dL (2.3-3.5); Osmolality,Calculated 293 (275-295); Potassium 4.1 mMol/L (3.4-5.1); Sodium 138 mMol/L (136-145); Total Protein 7.3 gm/dL (5.7-8.2); eGFR > 60 See Note
[2025-06-25 10:40] LABS: Glucose 401 mg/dL (74-106)
[2025-06-25 10:46] LABS: Carcinoembryonic Antigen 1.2 ng/mL (0.0-5.0)
--- NOTE | 2025-06-26 14:59 | CTCFLWUP_ITS ---
Patient: OUMOU SOLANO : 1960 Page 7 of 9 FOLLOW UP NOTE DATE OF SERVICE: 06/26/2025 NAME: OUMOU SOLANO ACCOUNT: [id number] : 1960 AGE: 64 INTERVAL HISTORY: Oumou Luther, a female with history of breast cancer, presented for routine follow-up reporting occasional fatigue. She completed Herceptin therapy in November 2024. Recent diagnostic tests showed no evidence of cancer recurrence, though a 5mm nodule was noted in left lung and an abnormality in left breast on MRI. A mammogram was scheduled for further evaluation. Mammogram was completed and ultrasound was recommended . patient will like to do ultrasound outside radiology . Iron supplementation was initiated for possible anemia-related fatigue. Bone-strengthening infusions, last received June 2024, will resume following dental clearance for her broken tooth from September 2025. History of Present Illness Oumou Luther is an oncology patient who presents for routine follow-up and reports feeling fine overall. She experiences occasional episodes of fatigue, during which she lies down and subsequently feels better. The patient completed her last treatment in November 2024 and has finished all Herceptin therapy. She was scheduled to receive bone-strengthening infusions but missed her December appointment due to a dental issue - she had a broken tooth that occurred around October 08 or of this year and was advised to wait before receiving the infusion. Her last bone-strengthening infusion was in June 2024, but there appears to have been confusion about her dental clearance at that time, and she may not have actually received the infusion as planned. Medical History - Breast cancer, completed treatment in November 2024 - Broken tooth in September 2024 Medications and Supplements - Herceptin - Last treatment was in November. Treatment course completed. - Bone strengthening infusions - Last received in June 2024. Missed scheduled December infusion due to dental issues requiring tooth treatment. Review of Systems General: Positive for fatigue (reports feeling tired at times, relieved by rest). Objective Laboratory, Imaging, and Diagnostic Test Results - Date: 11/03/2024 - Netera test: Negative - Date: 11/29/2024 - [facility] test: Negative for cancer - Date: 12/2024 - Echocardiogram: Normal - Date: 02/15/2025 - CT scan: One small 5-millimeter nodule in left upper lobe of lungs, otherwise negative - MRI bilateral breast: Abnormality noted in left breast only ONCOLOGY HISTORY: DIAGNOSIS: Malignant neoplasm of central portion of left female breast [ICD10] C50.112 DATE OF DIAGNOSIS: 06/28/2023 STAGE/TNM: T2 N0 M0 HER2 positive ER/KS negative TREATMENT HISTORY: Care?Plan Start?Date Cycle Day Intent TCH?1 12/12/2023 1 21 Curative?(adjuvant) Zoledronic?Acid?4?mg?adjuvant 01/04/2024 1 180 Curative?(adjuvant) VENOfer?200mg?IV?wkly?for?10?weeks 04/23/2025 1 70 Maintenance HISTORY OF PRESENT ILLNESS: Oumou Solano is a 64-year-old SPA speaking female with following oncology history. 05/30/2021: Ms. Solano had bilateral screening mammograms 01/18/2023: Ms. Solano started feeling a lump in the left breast. She had bilateral digital mammograms 01/25/2023: Left breast ultrasound 06/28/2023: Ultrasound-guided left breast biopsy? 08/05/2023: Echocardiogram showed an ejection fraction of 55-60%. 08/12/2023: PET/CT scan 08/18/2023: MRI of the both breast with and without contrast 09/02/2023: CT scan of the abdomen and pelvis with IV contrast was done to evaluate the cause for abdominal pain 09/16/2023: Left breast lumpectomy with sentinel lymph node biopsy? 10/29/2023: Endometrial biopsy negative for malignancy. 11/03/2023: Echo cardiogram showed an ejection fraction of 60-65%. 12/21/2023: Patient received first cycle of TCH chemotherapy in the adjuvant setting. 10/24/2024 IMPRESSION: BI-RADS Category 4: Suspicious for malignancy Recommend ultrasound- guided biopsy of mass in the central to 3:00 position left breast described above to exclude recurrent malignancy Dictated By: Brad Vargas MD Signed By: <Electronically signed by Brad Vargas MD in [place]> 10/24/24 1648 OTHER MEDICAL HISTORY/CONDITIONS: DIABETES HYPERTENSION LEFT BREAST CANCER CHOLELITHIASIS CHEMO PORT PLACED AUGUST 2023 DR GRANT TUBAL LIGATION LEFT KNEE REPLACEMENT BLADDER SLING PROLAPSE 2ND SURGERY FAMILY HISTORY: Father:?DENIES Mother:?DENIES Sibling:?DENIES Children:?DENIES Cancer?History:?DENIES Patient?denies?family?cancer?history. 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 Aspirin Child - 81 mg Daily 2. atorvastatin - 10 mg Daily 3. famotidine - 20 mg Daily 4. lisinopril - 40 mg Daily 5. metFORMIN - 500 mg 1 tab Twice a Day Medications Last Reconciled by Oumou Scales MA on 06/26/2025 ALLERGIES: No Known Drug Allergies REVIEW OF SYSTEMS: A complete 14-point review of systems was performed and is negative except as noted in interval history. PHYSICAL EXAMINATION: VITAL SIGNS: PAIN: 0 - No pain ECOG Performance Status: 0 - Asymptomatic and fully active GENERAL APPEARANCE: Appears well, in no apparent distress, appropriately interactive. HEENT: Normocephalic, no temporal wasting, normal conjunctiva, no scleral icterus, normal hearing, lips without lesions, neck normal range of motion. CARDIOVASCULAR: Not assessed. PULMONARY: Normal respiratory effort, no respiratory distress or use of accessory muscles, speaking in full sentences, no tachypnea. EXTREMITIES: No pedal edema or cyanosis. SKIN: Normal skin appearance. NEUROLOGIC: Alert and oriented x4. PSHYCHIATRIC: Appropriate affect, mood normal, behavior normal, intact thought and speech. LABORATORY DATA: I have personally reviewed and interpreted each of the patient?s relevant lab tests, abnormal findings are below: Date 06/25/25 ??WHITE?BLOOD?COUNT?(Thou/mm3) 6.8 7.8 ??RED?BLOOD?COUNT?(Miln/mm3) 4.25 4.55 ??HEMOGLOBIN?(gm/dl) 13.0 13.8 ??HEMATOCRIT?(%) 38.6 42.0 ??PLATELET?COUNT?(Thou/mm3) 275 281 ??NEUTROPHILS?%,?AUTO?(%) 65 64 ??LYMPH?%,?AUTO?(%) 25 28 ??NEUTROPHILS,?AUTO?(Thou/mm3) 4.4 5.0 ??GLUCOSE,RANDOM?(mg/dL) 401?HH 344?H ??BLOOD?UREA?NITROGEN?(mg/dL) 15 14 ??CREATININE?(mg/dL) 0.90 1.00 ??SODIUM?(mmol/L) 138 138 ??POTASSIUM?(mmol/L) 4.1 4.4 ??CHLORIDE?(mmol/L) 102 104 ??CrCl?(CandG)?(ml/min) 56.68 51.02 ??AST/SGOT?(Unit/L) 24 29 ??ALT/SGPT?(Unit/L) 17 30 ??ALKALINE?PHOSPHATASE?(Unit/L) 63 66 ??BILIRUBIN,?TOTAL?(mg/dL) 0.7 0.6 ??PROTEIN?TOTAL?(gm/dl) 7.3 8.0 ??ALBUMIN,?SERUM?(gm/dl) 4.7 5.2?H ??GLOBULIN?(gm/dl) 2.6 2.8 ??ALBUMIN/GLOBULIN?RATIO 1.8 1.9 ??CALCIUM,?SERUM?(mg/dL) 9.9 10.4 ??CALCIUM?SERUM?(CORRECTED)?(mg/dL) 9.9 10.4?H ASSESSMENT/PLAN: #1 stage IIa (pT2, snN0, cM0) ER negative, KS negative, 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 S/p left breast lumpectomy and sentinel lymph node biopsy on 09/16/2023. S/p ultrasound-guided biopsy of the left breast mass (06/28/2023) S/p TCH chemotherapy in the adjuvant setting.. and 1 year of HP pn 11/23/2024 Completed radiation Mri breast completed . it shows architectural distortion for more than 5 cm . Recent diagnostic tests show no evidence of cancer recurrence. A netera test on November 24, 2024 (blood collected on November 03, 2024) was negative. Another netera test with blood collected on November 29, 2024 also showed no cancer. A CT scan on February 15, 2025 revealed a small 5-millimeter nodule in the left upper lobe of the lungs, but was otherwise negative. An echocardiogram in December 2024 was normal. An MRI of the bilateral breasts showed an issue only in the left breast. Mammogram reviewed Ultrasound ordered and biopsy at outside radiology facility - Follow up as scheduled Anemia Assessment: Patient reports occasional fatigue, which may be related to anemia. Iron supplementation is being considered to address this issue. Plan: - iron supplementation - Monitor for improvement in fatigue symptoms Bone Health Assessment: Patient was scheduled to receive infusions to strengthen bones starting in December, but this was delayed due to a dental issue. The patient had a broken tooth around October 08-2024, which required treatment. The last bone- strengthening treatment was in March of the previous year. Plan: - Resume bone-strengthening infusions once cleared by dentist ORDERS: Order # Description [id number] Infusion 1 Hour [id number] Infusion 1 Hour [id number] Infusion 1 Hour RETURN TO CLINIC: I reviewed the diagnosis, prognosis, and recommended treatment/procedure options with the patient (and/or their legal public health representative), including the potential benefits, risks, side effects and alternative therapies. We also discussed the option of no treatment and the possibility of clinical trial participation, if applicable. All questions were addressed, and they demonstrated understanding. They provided informed consent to proceed with the proposed plan of care. BILLING AND COMPLIANCE: I reviewed external records from providers outside my specialty as summarized above. I spent a total of 50 minutes on this patient?s care on the day of their visit excluding time spent related to any billed procedures. This time includes time spent with the patient as well as time spent documenting in the medical record, reviewing patients records and tests, obtaining history, placing orders, communicating with other healthcare professionals, counseling the patient, family or caregiver, and/or care coordination for the diagnoses above. Electronically Signed by: Sonido Young MD T: 2:57 PM CC: PCP: Serina Adrian Referring: Serina Adrian This document was completed utilizing speech recognition software. Grammatical errors, random word insertions, pronoun errors, and incomplete sentences are an occasional consequence of this system due to software limitations, ambient noise, and hardware issues. Any formal questions or concerns about the content, text or information contained within the body of this dictation should be directly addressed to the provider for clarification.
== END 2025-07-25 23:59 | disposition home or self-care (01) ==
LOC: SCTC 12:53
PROVIDERS: PCP Nurse Practitioner Family; Referring Provider Nurse Practitioner Family; Visit Provider Internal Medicine Hematology & Oncology
DX: D64.9 Anemia, unspecified (principal); R92.8 Other abnormal and inconclusive findings on diagnostic imaging of breast; R91.1 Solitary pulmonary nodule; Z85.3 Personal history of malignant neoplasm of breast; Z92.21 Personal history of antineoplastic chemotherapy; Z90.12 Acquired absence of left breast and nipple
CPT/HCPCS: 36591; 80053; 82378; 85025; 96365; 96375; 99213; A4216; J1642; J1756; J2919; J3490; J7040; A9270; G0463